=== PATIENT | male | born 1965 | race Caucasian/White ===

== ENCOUNTER 2025-04-15 08:51 | Outpatient (CLI) | payer OTHER, SELFPAY ==
--- OUTSIDE RECORDS SUMMARY | 2025-03-20 08:00 | XMS_ITS | Encounter Summary ---
Author Organization [facility] er Address [address] [place] [address] Care Team Providers Care Director Of Recruitment Name Role Phone Lucho Rock MD Primary Care Provider [phone] Encounter Details Date Type Department Care Team (Late st Contact Info) Description 03/20/2025 8:00 AM CDT Office Visit [facility] [address] [place] [address] Jessie Lal, DPM [address] [place] [address] Type 2 diabetes mellitus with diabetic polyneuropathy, without long-term current use of insulin (HCC) (Primary Dx); History of amputation of right great toe; History of amputation of lesser toe of right foot; Callus of foot; Thickened nails Social History Tobacco Use Types Packs/Day Years Used Date Smoking Tobacco: Never Smokeless Tobacco: Never Alcohol Use Standard Drinks/Week Comments Not Currently 0 (1 standard drink = 0.6 oz pur e alcohol) very minimal B1300 Health Literacy Answer Date Recor ded How often do you need to hav e someone help you when you read instructions, pamphlets, or other written material from your doctor or pharmacy? Never 08/20/2024 [facility] Utilities Answer Date Recorded In the past 12 months has e [employer], gas, oil, or water [employer] threatened to shut off services in your home? No 08/20/2024 Humiliation, Afraid, Rape, and Kick questionnair e Answer Date Recorded Within the last year, have y ou been afraid of your partner or ex-partner? No 08/20/2024 Within the last year, have y ou been humiliated or emotionally abused in other ways by your partner or ex-partner? No Within the last year, have y ou been kicked, hit, slapped, or otherwise physically hurt by your partner or ex-partner? No 08/20/2024 Within the last year, have y ou been raped or forced to have any kind of sexual activity by your partner or ex-partner? No 08/20/2024 Social Connection and Isolation Panel [NHANES] A nswer Date Recorded In a typical week, how many times do you talk on the phone with family, friends, or neighbors? Three times a week 08/20/2024 How often do you get togethe r with friends or relatives? Once a week 08/20/2024 How often do you attend chur ch or adventist services? Never 08/20/2024 Do you belong to any clubs o r organizations such as sikhism groups, unions, fraternal or athletic groups, or school groups? No 08/20/2024 How often do you attend meet ings of the clubs or organizations you belong to? Never 08/20/2024 Are you , , di vorced, , never , or living with a partner? Never 08/20/2024 AUDIT-C Answer Date Recorded Q1: How often do you have a drink containing alcohol? Never 08/20/2024 Q2: How many drinks containi ng alcohol do you have on a typical day when you are drinking? Patient does not drink Q3: How often do you have si x or more drinks on one occasion? Never 08/20/2024 Overall Financial Resource Strain (CARDIA) Answe r Date Recorded How hard is it for you to pa y for the very basics like food, housing, medical care, and heating? Not very hard 08/20/2024 PHQ-2 Answer Date Recorded PHQ-9 Total Score 2 02/02/2025 [facility] [place] of Occupat ional Health - Occupational Stress Questionnaire Answer Date Recorded Do you feel stress - tense, restless, nervous, or anxious, or unable to sleep at night because your mind is troubled all the time - these days? Only a little 08/20/2024 Exercise Vital Sign Answer Date Recorde d On average, how many days pe r week do you engage in moderate to strenuous exercise (like a brisk walk)? 5 days On average, how many minutes do you engage in exercise at this level? Patient declined 08/20/2024 Hunger Vital Sign Answer Date Recorded Within the past 12 months, y ou worried that your food would run out before you got the money to buy more. Never true 08/20/20 24 Within the past 12 months, t he food you bought just didn't last and you didn't have money to get more. Never true 08/20/2024 PRAPARE - Transportation Answer Date Re corded In the past 12 months, has l ack of transportation kept you from medical appointments or from getting medications? No 07/24 In the past 12 months, has l ack of transportation kept you from meetings, work, or from getting things needed for daily living? No 08/20/2024 Housing Stability Vital Sign Answer Donald e Recorded In the last 12 months, was t here a time when you were not able to pay the mortgage or rent on time? No 12/18/2022 In the last 12 months, how many places have you lived? 1 12/18/2022 In the last 12 months, was t here a time when you did not have a steady place to sleep or slept in a long term (including now)? No 12/18/2022 Housing Stability Vital Sign Answer Donald e Recorded In the last 12 months, was t here a time when you were not able to pay the mortgage or rent on time? No 08/20/2024 In the past 12 months, how m any times have you moved where you were living? 0 08/20/2024 At any time in the past 12 m [facility], were you homeless or living in a long term (including now)? No 08/20/2024 Interpersonal Safety Questionnaire Answer Date Recorded How often does anyone, sandoval aponte family and friends, physically hurt you? Never 08/20/2024 How often does anyone, sandoval aponte family and friends, insult or talk down to you? Never 08/20/2024 How often does anyone, sandoval aponte family and friends, threaten you with harm? Never 08/20/2024 How often does anyone, sandoval aponte family and friends, threaten you with harm? 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 male. HPI Patient presents to Podiatry for Diabetic foot care. Patient is unable to cut his nails on his own due to decreased delivery representative strength and flexibility. Patient also needs debridement of the callouses to prevent ulcerations. He has history of amputation of right great toe and 2nd digit, right foot. Patient wearing work boots today Date last seen by Lucho Rock MD: 08/20/2024 Date last seen by Physical Therapist Assistant: Patient last saw Linwood Molina MD on Last hemoglobin A1c: 13.9 on 02/03/2025 Review of Systems Constitutional: No fever, chills or sweats Respiratory: No cough or shortness of breath Cardiac: No chest pain or lower extremity swelling Musc: Amputation right great toe and 2nd digit, right . Skin: Hyperkeratotic tissue present plantar medial aspect of the left hallux and medial aspect of left foot at head of metatarsal. Xerotic skin of the right foot. Heme: denies easy bleeding or bruising. Neuro: History of neuropathy Past Medical History: Diagnosis Date COVID 07/2022 Diabetes (HCC) Type 2 Drug-induced acute pancreatitis 10/09/2012 Drug-induced pancreatitis 06/19/2019 History of amputation of great toe 05/19/2020 History of pancreatitis 08/09/2019 HTN (hypertension) Hyperlipidemia Lyme disease 04/22/2012 Pancreatitis Type 2 diabetes mellitus with ketoacidosis (HCC) 10/08/2012 Varicella Visual impairment Past Surgical History: Procedure Laterality Date ACHILLES TENDON SURGERY Right 07/30/2020 Procedure: ENDOSCOPIC GASTROCNEMIUS RECESSION; Surgeon: Casa Peguero DPM; Location: [facility] OR; Service: Podiatry; Laterality: Right; paper concent (physical copy) AMPUTATION CATARACT EXTRACTION W/ INTRAOCULAR LENS IMPLANT Right 08/31/2021 Procedure: CATARACT EXTRACTION WITH INTRAOCULAR LENS IMPLANTATION; Surgeon: Israel Garcia MD; Location: [facility] OR; Service: Ophthalmology; Laterality: Right; CATARACT EXTRACTION W/ INTRAOCULAR LENS IMPLANT Left 09/14/2021 Procedure: CATARACT EXTRACTION WITH INTRAOCULAR LENS IMPLANTATION; Surgeon: Israel Garcia MD; Location: [facility] OR; Service: Ophthalmology; Laterality: Left; COLONOSCOPY N/A 01/07/2021 Procedure: COLONOSCOPY; Surgeon: Marlon Lord MD; Location: [facility] GI; Service: General; Laterality: N/A; COLONOSCOPY N/A 01/10/2021 Procedure: COLONOSCOPY; Surgeon: Marlon Lord MD; Location: [facility] GI; Service: General; Laterality: N/A; COLONOSCOPY N/A 09/28/2023 Procedure: COLONOSCOPY WITH MAC; Surgeon: Alex Martino MD; Location: [facility] OR PROCEDURE ROOM; Service: General; Laterality: N/A; Lm 07/05 COLONOSCOPY N/A 10/01/2023 Procedure: COLONOSCOPY; Surgeon: Marlon Lord MD; Location: [facility] OR PROCEDURE ROOM; Service: General; Laterality: N/A; repeat scope from sunday COLONOSCOPY N/A 02/12/2025 Procedure: COLONOSCOPY; Surgeon: Marlon Lord MD; Location: [facility] OR PROCEDURE ROOM; Service: General; Laterality: N/A; SCHEDULE WITH DR. LORD SEMI URGENT 02/02/25 left message COLONOSCOPY N/A 02/13/2025 Procedure: COLONOSCOPY; Surgeon: Alex Martino MD; Location: [facility] OR PROCEDURE ROOM; Service: General; Laterality: N/A; Repeat scope from 02/12/25 FOOT SURGERY TOE AMPUTATION Right 2004 partial right great toe amputation TOE AMPUTATION Right 06/11/2020 Procedure: Amputation right great toe; Surgeon: Jesusita Jasso DPM; Location: [facility] OR; Service: Podiatry; Laterality: Right; TOE AMPUTATION Right 07/30/2020 Procedure: AMPUTATION SECOND TOE; Surgeon: Casa Peguero DPM; Location: [facility] OR; Service: Podiatry; Laterality: Right; paper concent (the [place] was not working) paper copy Objective Physical Exam Lower Extremity Vascular Pulses: DP pulses palpable bilateral. PT pulses palpable bilateral. Capillary refill time: within normal limits bilateral to all pedal digits. Pedal hair growth: absent bilateral lower extremities from the knee distally. Edema: mild diffuse nonpitting edema to bilateral lower extremities Skin Temperature: toes cool to touch bilateral lower extremities Lower Extremity Dermatology Skin: skin atrophic thin and shiny bilateral lower extremities Toenails: toenails 1-5 left foot and 3 through 5 right foot appropriate in length and thickness today. Hyperkeratotic lesions medial aspect of left foot at the head of the 1st metatarsal and medial aspect of the left Hallux Light touch sensation: decreased to the plantar aspect of the foot with positive numbness, burning and tingling to the toes Lower Extremity Musculoskeletal Left lower extremity - Inspection: hammertoe deformity 2-5. Right lower extremity - Inspection: great toe and second toe amputation. Hammertoe deformity 3-5. Gait exam: Unimpaired with no assistive device Procedure: Callus Debridement x2: Debridement of thickened callused abnormal nonviable skin to the level of the dermis to the left foot. Pain relief noted with procedure. Patient tolerated procedure well. No open wound or bleeding. No complications associated with callus debridement x2 today. Callus debridement is medically necessary to prevent ulceration and relieve pain. Toenail Debridement: toenails 1-5 bilateral manually and mechanically debrided both in thickness and in length to obtain a more normal appearance of the nails. Pain relief noted with procedure. Patient tolerated procedure well. No complications associated with the procedure today. 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 Patient will return to clinic in 10 weeks for debridement of his calluses. 2. Patient will call with any questions or concerns. 3. Patient to apply lotion to his feet on a daily basis. Jessie Lal DPM, FACFAS documented in this encounter Plan of Treatment Upcoming Encounters Date Type Department Care Team (Late st Contact Info) Description 05/29/2025 8:00 AM CDT Office Visit [facility] [address] [place] [address] Treva Zamora, CONFIGURATION MANAGER, SCHOOL CUSTODIAN [address] [facility] [address] documented as of this encounter Goals Goal Patient Goal Type Associated Problems Recent Progress Patient-Stated? Author Routine Health Management General On track( 022 1:17 PM SEAFOOD CLERK) No Beti Varela, RN Note: Routine Health Management Primary Care Provider Lucho Rock MD Future Scheduled Appointments Future Appointments Date Time Provider Department Center 01/20/2022 4:00 PM Kaila Bateman DPM [facility] Health Maintenance Health Maintenance Topic Date Due COVID-19 Vaccine (1) Never done Hemoglobin A1C 11/23/2021 Lipid Panel 07/01/2022 Urine Protein Screening 07/01/2022 Diabetic Foot Exam 07/22/2022 Ophthalmology Exam 09/22/2022 Colorectal Cancer Screening: Colonoscopy 01/11/2024 [facility] Pneumococcal Vaccine: <64 (2 of 2 - PPSV23) 2029 [facility] Pneumococcal Vaccine: 65+ Years (2 of 2 - PPSV23) 2029 HPV Vaccines Aged Out Notes: Diabetes Management General No change(2021 1:17 PM SEAFOOD CLERK) No Beti Varela, RN Note: Diabetes Management Diabetes mellitus type II, non insulin dependent (HCC) Mixed hyperlipidemia Managed by (PCP or Endocrinology) Dr. Rosado (Endocrinology) Last: 07/22/21 Due: Lifestyle management (diet and exercise) Limits carbs/sugars Avoid snacking Home Glucose tracking With meals and before bedtime Diabetic medications glipiZIDE (GLUCOTROL XL) 10 MG 24 hr tablet 1 tablet twice daily metFORMIN (GLUCOPHAGE) 1000 MG tablet 1 tablet twice daily pioglitazone (ACTOS) 30 MG tablet 1 tablet daily Empagliflozin (Jardiance) 25 MG tablet 1 tablet daily Statin therapy atorvastatin (LIPITOR) 40 MG tablet 1 tablet evening Aspirin therapy (if applicable: diagnosis IVD) aspirin 81 MG chewable tablet 1 tablet daily Diabetic labs: Hemoglobin A1C (goal: less than 8.0) LDL (goal: less than 100) Creatinine Urine-Micro albumin / Protein Lab Results Component Value Date HGBA1C 9.7 (H) 08/23/2021 HGBA1C 9.6 (H) 07/01/2021 HGBA1C 8.5 (H) 09/27/2020 Lab Results Component Value Date LDLCALC 66 07/01/2021 CREATININE 1.2 07/01/2021 Recent Blood Pressure (goal: less than 140/90) BP Readings from Last 1 Encounters: 09/29/21 103/74 Diabetic Eye Exam (yearly) Last: 08/08/2021 Diabetic Foot Exam (yearly) Last: 02/07/21 Tobacco use Social History Tobacco Use Smoking status: Never Smoker Smokeless tobacco: Never Used Notes: Cardiovascular Management General On track( 022 1:17 PM SEAFOOD CLERK) Beti Grimm RN Note: Cardiovascular Management Essential hypertension Managed by (PCP; Cardiology; [facility]) Dr. 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
--- NOTE | 2025-04-15 09:15 | CRLHL7_ITS ---
For Patients: As a result of the Century Cures Act, medical imaging exams and procedure reports are released immediately into your electronic medical record. You may view this report before your referring provider. If you have questions, please contact your health care provider. INDICATION: Difficulty swallowing TECHNIQUE: Modified barium swallow. Fluoroscopic time 50 seconds. COMPARISON: None FINDINGS/IMPRESSION: Anatomical structures are normal. Swallowing mechanism appears within normal limits. No episodes of penetration or aspiration. No significant findings. Dictated by Manny Liriano MD @ 04/15/2025 10:12:21 AM (Electronically Signed)
--- OUTSIDE RECORDS SUMMARY | 2025-04-16 00:29 | XMS_ITS | Encounter Summary ---
Author Organization [facility] er Address [address] [place] [address] Care Team Providers Care Pst Specialist Name Role Phone Lucho Rock MD Primary Care Provider [phone] Encounter Details Date Type Department Care Team (Late Contact Info) Description 08/02/2020 Telephone [facility] Medical/Surgical [address] [place] [address] Howie Pérez, MSN [address] [place] [address] Social History Tobacco Use Types Packs/Day Years Used Date Smoking Tobacco: Never Smokeless Tobacco: Never Alcohol Use Standard Drinks/Week Comments Not Currently 0 (1 standard drink = 0.6 oz pure alcohol) Havent had a drink in ten years PHQ-2 Answer Date Recorded PHQ-2 Score 0 06/09/2020 Sex and Gender Information Value Date Recorded Sex Assigned at Not on file Legal Sex Male 6:43 PM CDT Gender Identity Not on file Sexual Orientation Not on file COVID-19 Exposure Response Date Recorded In the last month, have you been in contact with someone who was confirmed or suspected to have Coronavirus / COVID-19? No / Unsure 07/25/2020 8:28 PM CDT documented as of this encounter Plan of Treatment Upcoming Encounters Date Type Department Care Team (Late st Contact Info) Description 05/29/2025 8:00 AM CDT Office Visit [facility] [address] [address] Treva Zamora, HOSPICE COMMUNITY LIAISON, HARPSICHORD MAKER [address] [place] [address] documented as of this encounter Goals Goal Patient Goal Type Associated Problems Recent Progress Patient-Stated? Author Routine Health Management General On track( 022 1:17 PM VETERINARY DENTIST) No Beti Varela, RN Note: Routine Health Management Primary Care Provider Lucho Rock MD Future Scheduled Appointments Future Appointments Date Time Provider Department Center 01/20/2022 4:00 PM Kaila Bateman DPM [facility] Health Maintenance Health Maintenance Topic Date [...] Diabetes Management General No change(2021 1:17 PM VETERINARY DENTIST) No Beti Varela, RN Note: Diabetes Management [...] Never Smoker Smokeless tobacco: Never Used Notes: documented as of this encounter Visit Diagnoses Not on filedocumented in this encounter Additional Health Concerns Infection Onset Date Last Indicated Resolved Time MSSA 06/13/2019 07/27/2020 07/19/2022 8:27 AM CDT COVID-19 Rule Out 08/26/2021 08/26/2021 08/27/2021 6:33 AM CDT COVID-19 Rule Out 09/01/2021 09/01/2021 09/01/2021 8:13 PM VETERINARY DENTIST COVID-19 Rule Out 09/09/2021 09/09/2021 09/10/2021 1:46 AM VETERINARY DENTIST COVID-19 Rule Out 06/21/2022 06/21/2022 06/21/2022 4:19 PM CDT COVID-19 Rule Out 06/21/2022 06/21/2022 06/21/2022 4:31 PM CDT COVID-19 Rule Out 06/27/2022 06/27/2022 06/27/2022 3:35 PM CDT COVID-19 Rule Out 08/17/2022 08/17/2022 08/17/2022 11:18 AM CDT COVID-19 Confirmed 08/17/2022 08/17/2022 8:17 PM VETERINARY DENTIST COVID-19 Rule Out 07/03/2024 07/03/2024 07/03/2024 1:46 PM CDT COVID-19 Confirmed 07/03/2024 07/03/2024 8:17 PM VETERINARY DENTIST documented as of this encounter Care Teams Pst Specialist Relationship Specialty Start Date End Date Lucho Rock MD [address] [facility] [address] [place] [address] PCP - General Family Medicine 11/18/20 documented as of this encounter
--- OUTSIDE RECORDS SUMMARY | 2025-04-16 00:29 | XMS_ITS | Encounter Summary ---
Author Organization [facility] er Address [address] [place] [address] Care Team Providers Care Business Services Officer Name Role Phone Lucho Rock MD Primary Care Provider [phone] Encounter Details Date Type Department Care Team (Late Contact Info) Description 08/09/2018 Telephone [place] [address] [place] [address] Carla Concepcion, LENS COATER, SYSTEMS SOFTWARE MANAGER [address] [address] Social History Tobacco Use Types Packs/Day Years Used Date Smoking Tobacco: Never Assessed Sex and Gender Information Value Date Recorded Sex Assigned at Not on file Legal Sex Male 6:43 PM CDT Gender Identity Not on file Sexual Orientation Not on file documented as of this encounter Plan of Treatment Upcoming Encounters Date Type Department Care Team (Late Contact Info) Description 05/29/2025 8:00 AM CDT Office Visit [facility] [address], [place] [address] Treva Zamora APRN, SYSTEMS SOFTWARE MANAGER [address] [place] [phone] documented as of this encounter Visit Diagnoses Not on filedocumented in this encounter Additional Health Concerns Infection Onset Date Last Indicated Resolved Time MSSA 06/13/2019 07/27/2020 07/19/2022 8:27 AM CDT COVID-19 Rule Out 06/08/2020 06/08/2020 06/08/2020 10:39 PM CDT COVID-19 Rule Out 08/26/2021 08/26/2021 08/27/2021 6:33 AM CDT COVID-19 Rule Out 09/01/2021 09/01/2021 09/01/2021 8:13 PM TURBINE ATTENDANT COVID-19 Rule Out 09/09/2021 09/09/2021 09/10/2021 1:46 AM TURBINE ATTENDANT COVID-19 Rule Out 06/21/2022 06/21/2022 06/21/2022 4:19 PM CDT COVID-19 Rule Out 06/21/2022 06/21/2022 06/21/2022 4:31 PM CDT COVID-19 Rule Out 06/27/2022 06/27/2022 06/27/2022 3:35 PM CDT COVID-19 Rule Out 08/17/2022 08/17/2022 08/17/2022 11:18 AM CDT COVID-19 Confirmed 08/17/2022 08/17/2022 3 8:17 PM TURBINE ATTENDANT COVID-19 Rule Out 07/03/2024 07/03/2024 07/03/2024 1:46 PM CDT COVID-19 Confirmed 07/03/2024 07/03/2024 4 8:17 PM TURBINE ATTENDANT documented as of this encounter Care Teams Business Services Officer Relationship Specialty Start Date End Date Lucho Rock MD [address] [place] [address] PCP - General Family Medicine 11/18/20 documented as of this encounter
--- OUTSIDE RECORDS SUMMARY | 2025-04-16 00:29 | XMS_ITS | Encounter Summary ---
Author Organization [facility] er Address [address] [place] [address] Care Team Providers Care Service Coordinator Elderly Facility Name Role Phone Lucho Rock MD Primary Care Provider [phone] Encounter Details Date Type Department Care Team (Late st Contact Info) Description 02/04/2025 Results Follow-Up [place] [address] [address] Lucho Rock MD 1705 [facility], [facility] 20 [place] [address] Acute cystitis without hematuria (Primary Dx) Social History Tobacco Use Types Packs/Day Years [...] from your doctor or pharmacy? Never 08/20/2024 [employer] Utilities Answer Date Recorded In the past 12 months has Tam[employer], gas, oil, or water [employer] threatened to shut off services in your [...] 08/20/2024 How often do you attend chur [employer] or lutheran services? Never 08/20/2024 Do you belong to any clubs o r organizations such as sikh groups, unions, fraternal or athletic groups, or [...] Date Recorded PHQ-9 Total Score 2 02/02/2025 [facility] of Occupat ional Health - Occupational Stress [...] place to sleep or slept in a residential (including now)? No 12/18/2022 Housing Stability Vital Sign Answer Donald e Recorded In the last 12 months, was t here a time when you were not able to pay the mortgage or rent on time? No 08/20/2024 In the past 12 months, how m any times have you moved where you were living? 0 08/20/2024 At any time in the past 12 m [facility], were you homeless or living in a residential (including now)? 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 coli. Recommend Bactrim twice a day for 10 days. Prefer the colonoscopy to be scheduled earlier if possible. I have faxed a prescription for the antibiotics to the patient's pharmacy * Result Encounter Note - Lucho Rock MD - 02/04/2025 8:11 AM CDT Continue to try to reach out to Jose to review the medication management prior to colonoscopy (see telephone note from 02/03/25). Also inform him that his A1C was very elevated at 13.9. I would strongly recommend following up with me after colonoscopy or to help further with medications to manage his blood sugars, as we can implement more things prior to his Endocrinology follow up in February. documented in this encounter Plan of Treatment Upcoming Encounters Date Type Department Care Team (Late st Contact Info) Description 05/29/2025 8:00 AM CDT Office Visit [facility] [address] [place] [address] Treva Zamora, DAMAGE ASSESSOR, LEAD SOFTWARE DEVELOPER 210 [facility] [place] [phone] documented as of this encounter Goals Goal Patient Goal Type Associated Problems Recent Progress Patient-Stated? Author Routine Health Management General On track( 022 1:17 PM SOCIAL MEDIA CAMPAIGN MANAGER) Beti Grimm, RN Note: Routine Health Management Primary Care Provider Lucho Rock MD Future Scheduled Appointments Future Appointments Date Time Provider Department Center 01/20/2022 4:00 PM [facility] Health Maintenance Health Maintenance Topic Date Due COVID-19 Vaccine (1) Never done Hemoglobin A1C 11/23/2021 Lipid Panel 07/01/2022 Urine Protein Screening 07/01/2022 Diabetic Foot Exam 07/22/2022 Ophthalmology Exam 09/22/2022 Colorectal Cancer Screening: Colonoscopy 01/11/2024 [facility] Pneumococcal Vaccine: <64 (2 of 2 - PPSV23) 2029 [facility] Pneumococcal Vaccine: 65+ Years (2 of 2 - PPSV23) 2029 HPV Vaccines Aged Out Notes: Diabetes Management General No change(2021 1:17 PM SOCIAL MEDIA CAMPAIGN MANAGER) No Beti Varela RN Note: Diabetes Management Diabetes mellitus type [...] Management General On track( 022 1:17 PM SOCIAL MEDIA CAMPAIGN MANAGER) Beti Grimm, RN Note: Cardiovascular Management Essential hypertension Managed by (PCP; Cardiology; [facility]) Dr. Rock (PCP) Last: 09/29/21 [...] as of this encounter Visit Diagnoses Diagnosis Acute cystitis without hematuria- Primary documented in this encounter Care Teams Service Coordinator Elderly Facility Relationship Specialty Start Date End Date Lucho Rock MD 1705 [facility] 20 [place] [address] PCP - General Family Medicine 11/18/20 documented as of this encounter
--- OUTSIDE RECORDS SUMMARY | 2025-04-16 00:29 | XMS_ITS | Encounter Summary ---
Author Organization [facility] er Address [address] [place] [address] Care Team Providers Care Box Annealer Name Role Phone Lucho Rock MD Primary Care Provider [phone] Encounter Details Date Type Department Care Team (Late st Contact Info) Description 07/15/2020 Telephone [facility] [address] [place] [address] Jesusita Jasso DPArmand 210 [place] [address] Social History Tobacco Use Types Packs/Day Years [...] AM CDT Office Visit [facility] [address] [place] [phone] Treva Zamora APRN, TOWN PLANNER 210 [place] [phone] documented as of this encounter Goals Goal Patient Goal Type Associated Problems Recent Progress Patient-Stated? Author Routine Health Management General On track( 022 1:17 PM CASINO SUPERVISOR) No Beti Varela RN Note: Routine Health Management Primary Care Provider Lucho Rock MD Future Scheduled Appointments Future Appointments Date Time Provider Department Center 01/20/2022 4:00 PM Kaila Bateman DPM [facility] Health Maintenance Health Maintenance Topic Date Due COVID-19 Vaccine (1) Never done Hemoglobin A1C 11/23/2021 Lipid Panel 07/01/2022 Urine Protein Screening 07/01/2022 Diabetic Foot Exam 07/22/2022 Ophthalmology Exam 09/22/2022 Colorectal Cancer Screening: Colonoscopy 01/11/2024 [facility] Pneumococcal Vaccine: <64 (2 of 2 - PPSV23) 2029 [facility] Pneumococcal Vaccine: 65+ Years (2 of 2 - PPSV23) 2029 HPV Vaccines Aged Out Notes: Diabetes Management General No change(2021 1:17 PM CASINO SUPERVISOR) No Beti Varela RN Note: Diabetes Management [...] Rule Out 09/01/2021 09/01/2021 09/01/2021 8:13 PM CASINO SUPERVISOR COVID-19 Rule Out 09/09/2021 09/09/2021 09/10/2021 1:46 AM CASINO SUPERVISOR COVID-19 Rule Out 06/21/2022 06/21/2022 06/21/2022 4:19 PM CDT COVID-19 Rule Out 06/21/2022 06/21/2022 06/21/2022 4:31 PM CDT COVID-19 Rule Out 06/27/2022 06/27/2022 06/27/2022 3:35 PM CDT COVID-19 Rule Out 08/17/2022 08/17/2022 08/17/2022 11:18 AM CDT COVID-19 Confirmed 08/17/2022 08/17/2022 8:17 PM CASINO SUPERVISOR COVID-19 Rule Out 07/03/2024 07/03/2024 07/03/2024 1:46 PM CDT COVID-19 Confirmed 07/03/2024 07/03/2024 8:17 PM CASINO SUPERVISOR documented as of this encounter Care Teams Box Annealer Relationship Specialty Start Date End Date Lucho Rock MD [address] [place] [address] PCP - General Family Medicine 11/18/20 documented as of this encounter
--- OUTSIDE RECORDS SUMMARY | 2025-04-16 00:29 | XMS_ITS | Encounter Summary ---
Author Organization [facility] er Address [address] [place] [address] Care Team Providers Care Desktop Publisher Name Role Phone Lucho Rock MD Primary Care Provider [phone] Reason for Visit * Reason Onset Date Comments Med Refill 07/06/2020 Encounter Details Date Type Department Care Team (Late st Contact Info) Description 07/06/2020 Refill [place] [address] [address] [place] [address] [place] [phone] Diabetes mellitus type II, non insulin dependent (HCC) Social History Tobacco Use Types Packs/Day Years [...] have Coronavirus / COVID-19? No / Unsure 06/11/2020 9:26 AM CDT documented as of this encounter Miscellaneous Notes * Telephone Encounter - Maya Velez MA - 07/06/2020 11:15 AM CDT Last visit in provider department: 07/01/2020 Last visit requested medication was discussed: 07/01/2020 Upcoming appointment with provider: none Last Rx: 06/24/19 #180, 3 refills Requested Prescriptions Pending Prescriptions Disp Refills ??? glipiZIDE (GLUCOTROL XL) 10 MG 24 hr tablet 180 tablet 3 Sig: TAKE ONE TABLET BY MOUTH TWICE A DAY Labs: Component Latest Ref Rng & Units 07/01/2020 Microalbumin,mg/day 0.0 - 16.6 mg/L <6.0 Creatinine, Urine mg/dL 63 Microalb/Creat Ratio 0 - 16 mg/g see below Component Latest Ref Rng & Units 07/01/2020 Hemoglobin A1C 4.0 - 5.6 % A1C 9.0 (H) Component Latest Ref Rng & Units 07/01/2020 Cholesterol 0 - 199 mg/dL 153 Triglycerides 0 - 149 mg/dL 234 (H) HDL 40 - 250 mg/dL 32 (L) LDL Calculated 0 - 99 mg/dL 74 Component Latest Ref Rng & Units 07/01/2020 Sodium 135 - 145 mmol/L 141 Potassium 3.5 - 5.1 mmol/L 4.8 Chloride 98 - 107 mmol/L 103 CO2 22 - 31 mmol/L 27 Creatinine 0.6 - 1.4 mg/dL 1.0 BUN 5 - 25 mg/dL 20 Glucose 70 - 100 mg/dL 148 (H) Calcium, Total,S 8.4 - 10.2 mg/dL 9.9 Fasting? Yes Vitals: BP Readings from Last 2 Encounters: 07/01/20 110/70 06/11/20 131/79 documented in this encounter Plan of Treatment Upcoming Encounters Date Type Department Care Team (Late st Contact Info) Description 05/29/2025 8:00 AM CDT [facility] Visit [facility] [address] [place] [address] Treva Zamora, MONOTYPE CASTER, HUMAN FACTORS ADVISOR LEAD 210 [facility] [place] [address] documented as of this encounter Goals Goal Patient Goal Type Associated Problems Recent Progress Patient-Stated? Author Routine Health Management General On track( 022 1:17 PM ENVIRONMENTAL GEOLOGIST) No Beti Varela RN Note: Routine Health Management Primary Care Provider Lucho Rock MD Future Scheduled Appointments Future Appointments Date Time Provider Department Center 01/20/2022 4:00 PM Kaila Bateman DPM [facility] Health Maintenance Health Maintenance Topic Date [...] Diabetes Management General No change(2021 1:17 PM ENVIRONMENTAL GEOLOGIST) No Beti Varela RN Note: Diabetes Management [...] as of this encounter Visit Diagnoses Diagnosis Diabetes mellitus type II, non insulin dependent (HCC) Type II or unspecified type diabetes mellitus without mention of complication, not stated as uncontrolled documented in this encounter Additional Health Concerns Infection Onset Date Last Indicated Resolved Time MSSA 06/13/2019 07/27/2020 07/19/2022 8:27 AM CDT COVID-19 Rule Out 08/26/2021 08/26/2021 08/27/2021 6:33 AM CDT COVID-19 Rule Out 09/01/2021 09/01/2021 09/01/2021 8:13 PM ENVIRONMENTAL GEOLOGIST COVID-19 Rule Out 09/09/2021 09/09/2021 09/10/2021 1:46 AM ENVIRONMENTAL GEOLOGIST COVID-19 Rule Out 06/21/2022 06/21/2022 06/21/2022 4:19 PM CDT COVID-19 Rule Out 06/21/2022 06/21/2022 06/21/2022 4:31 PM CDT COVID-19 Rule Out 06/27/2022 06/27/2022 06/27/2022 3:35 PM CDT COVID-19 Rule Out 08/17/2022 08/17/2022 08/17/2022 11:18 AM CDT COVID-19 Confirmed 08/17/2022 08/17/2022 3 8:17 PM ENVIRONMENTAL GEOLOGIST COVID-19 Rule Out 07/03/2024 07/03/2024 07/03/2024 1:46 PM CDT COVID-19 Confirmed 07/03/2024 07/03/2024 4 8:17 PM ENVIRONMENTAL GEOLOGIST documented as of this encounter Care Teams Desktop Publisher Relationship Specialty Start Date End Date Lucho Rock MD 1705 [facility] 20 [place] [address] PCP - General Family Medicine 11/18/20 documented as of this encounter
--- OUTSIDE RECORDS SUMMARY | 2025-04-16 00:29 | XMS_ITS | Encounter Summary ---
Author Organization [facility] er Address [address] [place] [address] Care Team Providers Care Paper Roll Machine Operator Name Role Phone Lucho Rock MD Primary Care Provider [phone] Reason for Visit * Reason Comments Med Refill Encounter Details Date Type Department Care Team (Late st Contact Info) Description 12/26/2022 Refill [facility] [address] [place] [address] Harris Rosado MBBS [address] [place] [id number] Type 2 diabetes mellitus with hyperglycemia, without long-term current use of insulin (HCC) Social History Tobacco Use Types Packs/Day Years Used Date Smoking Tobacco: Never Smokeless Tobacco: Never Alcohol Use Standard Drinks/Week Comments Not Currently 0 (1 standard drink = 0.6 oz pure alcohol) Havent had a drink in 12 years Humiliation, Afraid, Rape, and Kick questionnair e Answer Date Recorded Within the last year, have y ou been afraid of your partner or ex-partner? No 12/18/2022 Within the last year, have y ou been humiliated or emotionally abused in other ways by your partner or ex-partner? No Within the last year, have y ou been kicked, hit, slapped, or otherwise physically hurt by your partner or ex-partner? No 12/18/2022 Within the last year, have y ou been raped or forced to have any kind of sexual activity by your partner or ex-partner? No 12/18/2022 Social Connection and Isolat ion Panel [NHANES] Answer Date Recorded In a typical week, how many times do you talk on the phone with family, friends, or neighbors? More than three times a week 12/18/2022 How often do you get togethe r with friends or relatives? Once a week 12/18/2022 How often do you attend chur ch or christianity services? Never 12/18/2022 Do you belong to any clubs o r organizations such as mormonism groups, unions, fraternal or athletic groups, or school groups? No 12/18/2022 How often do you attend meet ings of the clubs or organizations you belong to? Never 12/18/2022 Are you , , di vorced, , never , or living with a partner? Never 12/18/2022 AUDIT-C Answer Date Recorded Q1: How often do you have a drink containing alcohol? Never 12/18/2022 Q2: How many drinks containi ng alcohol do you have on a typical day when you are drinking? Patient does not drink Q3: How often do you have si x or more drinks on one occasion? Never 12/18/2022 Overall Financial Resource Strain (CARDIA) Answe r Date Recorded How hard is it for you to pa y for the very basics like food, housing, medical care, and heating? Not hard at all 12/18/2022 PHQ-2 Answer Date Recorded PHQ-9 Total Score 2 12/27/2022 [facility] of Occupat ional Health - Occupational Stress Questionnaire Answer Date Recorded Do you feel stress - tense, restless, nervous, or anxious, or unable to sleep at night because your mind is troubled all the time - these days? Only a little 12/18/2022 Exercise Vital Sign Answer Date Recorde d On average, how many days pe r week do you engage in moderate to strenuous exercise (like a brisk walk)? 0 days 12/18/2022 On average, how many minutes do you engage in exercise at this level? 0 min 12/18/2022 Hunger Vital Sign Answer Date Recorded Within the past 12 months, y ou worried that your food would run out before you got the money to buy more. Never true 12/18/19 23 Within the past 12 months, t he food you bought just didn't last and you didn't have money to get more. Never true 12/18/2022 PRAPARE - Transportation Answer Date Re corded In the past 12 months, has l ack of transportation kept you from medical appointments or from getting medications? No 11/23 In the past 12 months, has l ack of transportation kept you from meetings, work, or from getting things needed for daily living? No 12/18/2022 Housing Stability Vital Sign Answer [...] place to sleep or slept in a group home (including now)? 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 Not on file Not on file documented as of this encounter Miscellaneous Notes * Telephone Encounter - Maddie Contreras LPN - 12/26/2022 9:27 AM STRIP DEBURRER Upcoming appointment with provider: 02/08/2023 Last visit in provider department: 03/31/2022 Last visit requested medication was discussed: 03/31/2022 Last Rx: Glipizide #180, 0 refills 09/28/2022 Pioglitazone #90, 0 refills 09/28/2022 Requested Prescriptions Pending Prescriptions Disp Refills glipiZIDE (GLUCOTROL XL) 10 MG 24 hr tablet [Pharmacy Med Name: GLIPIZIDE ER 10MG TB24] 180 tablet 0 Sig: TAKE 1 TABLET BY MOUTH TWICE A DAY pioglitazone (ACTOS) 30 MG tablet [Pharmacy Med Name: PIOGLITAZONE HCL 30MG TABS] 90 tablet 0 Sig: TAKE 1 TABLET BY MOUTH EVERY DAY Labs: ALBUMIN Date Value Ref Range Status 08/17/2022 4.3 3.5 - 5.0 g/dL Final CREATININE Date Value Ref Range Status 08/17/2022 1.3 0.6 - 1.4 mg/dL Final CHOL Date Value Ref Range Status 08/17/2022 134 0 - 199 mg/dL Final Comment: Recommended by National Cholesterol Education Program (ATP III) -------- Cholesterol Ranges -------- <200 Desirable 200-239 Borderline high >=240 High LDLCALC Date Value Ref Range Status 08/17/2022 69 0 - 99 mg/dL Final Comment: -------- LDL Ranges -------- <100 Optimal 100-129 Near optimal/above optimal 130-159 Borderline high 160-189 High >=190 Very high HDL Date Value Ref Range Status 08/17/2022 39 (L) 40 - 250 mg/dL Final Comment: -------- HDL Ranges -------- <40 Low 40-59 Normal >=60 Optimal TRIG Date Value Ref Range Status 08/17/2022 130 0 - 149 mg/dL Final Comment: -------- TRIG Ranges -------- <150 Normal 150-199 Borderline high 200-499 High >=500 Very high HGBA1C Date Value Ref Range Status 08/17/2022 10.0 (H) 4.0 - 5.6 % A1C Final Comment: Reference Range 4.0-5.6% is for non- adults >=18 yrs <5.6% Non-Diabetic 5.7-6.4% Increased risk of Diabetes >=6.5% Indicative of Diabetes <7.0% ADA goal for glycemic control Methodology may not detect all hemoglobin variants which can affect A1c results. Method certified by National Glycohemoglobin Standardization Program. Vitals: BP Readings from Last 2 Encounters: 12/18/22 119/71 10/20/22 138/82 P DEBURRER documented in this encounter Plan of Treatment Upcoming Encounters Date Type Department Care Team (Late st Contact Info) Description 05/29/2025 8:00 AM CDT Office Visit [facility] [address] [place] [address] Treva Zamora, GUNCOTTON PACKER, TOY MAKER [address] [place] [address] documented as of this encounter Goals Goal Patient Goal Type Associated Problems Recent Progress Patient-Stated? Author Routine Health Management General On track( 022 1:17 PM STRIP DEBURRER) No Beti Varela, RN Note: Routine Health Management Primary Care Provider Lucho Rock MD Future Scheduled Appointments Future Appointments Date Time Provider Department Center 01/20/2022 4:00 PM Kaila Bateman DPM [facility] Health Maintenance Health Maintenance Topic Date [...] Diabetes Management General No change(2021 1:17 PM STRIP DEBURRER) No Beti Varela, RN Note: Diabetes Management [...] Management General On track( 022 1:17 PM STRIP DEBURRER) Beti Grimm, RN Note: Cardiovascular Management Essential hypertension Managed by (PCP; Cardiology; [facility]) Dr. Rock (PCP) Last: 09/29/21 [...] Diagnoses Diagnosis Type 2 diabetes mellitus with hyperglycemia, without long-term current use of insulin (HCC) documented in this encounter Additional Health Concerns Infection Onset Date Last Indicated Resolved Time COVID-19 Rule Out 07/03/2024 07/03/2024 07/03/2024 1:46 PM CDT COVID-19 Confirmed 07/03/2024 07/03/2024 8:17 PM STRIP DEBURRER documented as of this encounter Care Teams Paper Roll Machine Operator Relationship Specialty Start Date End Date Lucho Rock MD 1705 [facility] 20 [place] [address] PCP - General Family Medicine 11/18/20 documented as of this encounter
--- OUTSIDE RECORDS SUMMARY | 2025-04-16 00:29 | XMS_ITS | Encounter Summary ---
Author Organization [facility] er Address [address] [place] [address] Care Team Providers Care Cylinder Checker Name Role Phone Lucho Rock MD Primary Care Provider [phone] Encounter Details Date Type Department Care Team (Late st Contact Info) Description 01/30/2025 Results Follow-Up [facility] General Surgery [address] [place] [address] [place] [address] [place] [phone] Pneumaturia (Primary Dx) Social History Tobacco Use Types Packs/Day Years Used Date Smoking Tobacco: Never Smokeless Tobacco: Never Alcohol Use Standard Drinks/Week Comments Yes 0 (1 standard drink = 0.6 oz pur e alcohol) very minimal B1300 Health Literacy Answer Date Recor ded How often do you need to hav e someone help you when you read instructions, pamphlets, or other written material from your doctor or pharmacy? Never 08/20/2024 [facility] Utilities Answer Date Recorded In the past 12 months has [facility] [employer], gas, oil, or water [employer] threatened to shut off services in your [...] 08/20/2024 How often do you attend chur [email or web address] or episcopalian services? Never 08/20/2024 Do you belong to any clubs o r organizations such as spiritism groups, unions, fraternal or athletic groups, or [...] Date Recorded PHQ-9 Total Score 2 02/02/2025 [facility] - Occupational Stress [...] place to sleep or slept in a prison (including now)? No 12/18/2022 Housing Stability Vital Sign Answer Donald e Recorded In the last 12 months, was t here a time when you were not able to pay the mortgage or rent on time? No 08/20/2024 In the past 12 months, how m any times have you moved where you were living? 0 08/20/2024 At any time in the past 12 m [facility], were you homeless or living in a prison (including now)? 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 Rock. * Telephone Encounter - Stefania Roman - 02/02/2025 10:23 AM CDT LMTCB to come earlier for his pre-op appt 4.14.[address] Rock added on lab if possible. * Telephone Encounter - Lucho Rock MD - 02/02/2025 8:13 AM CDT ----- Message from Marlon Lord MD sent at 01/30/2025 3:50 PM CDT ----- Will this urine specimen be sent directly culture or do we need to order it separately ----- Message ----- From: Interface, Lab Results In Sent: 01/30/2025 11:10 AM CDT To: Marlon Lord MD * Result Encounter Note - Marlon Lord MD - 01/30/2025 3:50 PM CDT Will this urine specimen be sent directly culture or do we need to order it separately documented in this encounter Plan of Treatment Upcoming Encounters Date Type Department Care Team (Late st Contact Info) Description 05/29/2025 8:00 AM CDT Office Visit [facility] [address] [place] [address] Treva Quigley, RESIDENTIAL PROGRAM MANAGER, PHLEBOTOMY COORDINATOR [address] [place] [address] documented as of this encounter Goals Goal Patient Goal Type Associated Problems Recent Progress Patient-Stated? Author Routine Health Management General On track( 022 1:17 PM BOG WORKER) No Beti Varela, RN Note: Routine Health Management Primary Care Provider Lucho Rock MD Future Scheduled Appointments Future Appointments Date Time Provider Department Center 01/20/2022 4:00 PM Kaila Bateman DPM [facility] Health Maintenance Health Maintenance Topic Date Due COVID-19 Vaccine (1) Never done Hemoglobin A1C 11/23/2021 Lipid Panel 07/01/2022 Urine Protein Screening 07/01/2022 Diabetic Foot Exam 07/22/2022 Ophthalmology Exam 09/22/2022 Colorectal Cancer Screening: Colonoscopy 01/11/2024 [facility] Pneumococcal Vaccine: <64 (2 of 2 - PPSV23) 2029 [facility] Pneumococcal Vaccine: 65+ Years (2 of 2 - PPSV23) 2029 HPV Vaccines Aged Out Notes: Diabetes Management General No change(2021 1:17 PM BOG WORKER) No Beti Varela, RN Note: Diabetes Management [...] Management General On track( 022 1:17 PM BOG WORKER) Beti Grimm RN Note: Cardiovascular Management Essential hypertension Managed by (PCP; Cardiology; [facility]) Dr. Rock (PCP) Last: 09/29/21 Due: [...] exercise) Notes: documented as of this encounter Procedures Procedure Name Priority Date/Time Associated Diagnosis Comments ADD-ON TEST REQUEST Routine 02/02/2025 8 :14 AM CDT Pneumaturia documented in this encounter Results * Add-On Test Request (02/02/2025 8:14 AM CDT) Add-on Testing SEE BELOW 02/02/2025 9:15 AM CDT [facility] Comment: Unable to add on URINE. 02/02/2025 8:14 AM CDT 02/02/2025 8:14 AM CDT Lucho Rock MD LAB BLOOD ORDERABLES Final R esult [facility] [address] [place] [address] documented in this encounter Visit Diagnoses Diagnosis Pneumaturia- Primary Other specified disorders of urinary tract documented in this encounter Care Teams Cylinder Checker Relationship Specialty Start Date End Date Lucho Rock MD [address] [place] [address] PCP - General Family Medicine 11/18/20 documented as of this encounter
--- OUTSIDE RECORDS SUMMARY | 2025-04-16 00:29 | XMS_ITS | Encounter Summary ---
Author Organization [facility] er Address [address] [place] [address] Care Team Providers Care On Call Pharmacy Technician Name Role Phone Lucho Rock MD Primary Care Provider [phone] Reason for Visit * Reason Comments Med Refill Encounter Details Date Type Department Care Team (Late st Contact Info) Description 09/30/2021 Refill [facility] [address] [place] [address] [phone] Harris Rosado MBBS [address] [place] [id number] Mixed hyperlipidemia Social History Tobacco Use Types Packs/Day Years Used Date Smoking Tobacco: Never Smokeless Tobacco: Never Alcohol Use Standard Drinks/Week Comments Not Currently 0 (1 standard drink = 0.6 oz pure alcohol) Havent had a drink in 12 years PHQ-2 Answer Date Recorded PHQ-9 Total Score 0 09/29/2021 Sex and Gender Information Value Date Recorded Sex Assigned at Not on file Legal Sex Male 6:43 PM CDT Gender Identity Not on file Sexual Orientation Not on file COVID-19 Exposure Response Date Recorded In the last month, have you been in contact with someone who was confirmed or suspected to have Coronavirus / COVID-19? No / Unsure 09/14/2021 10:08 AM SEWER AND CUTTER FINGER BUFF MATERIAL documented as of this encounter Miscellaneous Notes * Telephone Encounter - Shahrzad Mendez - 10/05/2021 11:22 AM CST scheduled R AND CUTTER FINGER BUFF MATERIAL * Telephone Encounter - Shahrzad Mendez - 2021 8:14 AM CST LMTCB R AND CUTTER FINGER BUFF MATERIAL * Telephone Encounter - Amanda Loya MA - 10/03/2021 12:03 PM SEWER AND CUTTER FINGER BUFF MATERIAL Patient is due for a f/u appt around 10/22/21. Please contact patient and schedule diabetic f/u appt with Dr. Rosado. Patient already did his HbA1c in August. R AND CUTTER FINGER BUFF MATERIAL * Telephone Encounter - Maddie Contreras LPN - 10/03/2021 11:46 AM SEWER AND CUTTER FINGER BUFF MATERIAL Last visit in provider department: 07/22/2021 Last visit requested medication was discussed: 07/22/2021 Upcoming appointment with provider: Visit date not found Last Rx: #90, 0 refills 05/24/2021 Requested Prescriptions Pending Prescriptions Disp Refills ??? fenofibrate (TRICOR) 145 MG tablet [Pharmacy Med Name: FENOFIBRATE 145MG TABS] 90 tablet 0 Sig: TAKE ONE TABLET BY MOUTH EVERY DAY Labs: Ref. Range 07/01/2021 08:19 Cholesterol Latest Ref Range: 0 - 199 mg/dL 140 Triglycerides Latest Ref Range: 0 - 149 mg/dL 220 (H) HDL Latest Ref Range: 40 - 250 mg/dL 30 (L) LDL Calculated Latest Ref Range: 0 - 99 mg/dL 66 Vitals: BP Readings from Last 2 Encounters: 09/29/21 103/74 09/14/21 121/81 Patient is due for three month follow up appointment around 10/22/2021. PSR/Nurse: Please contact patient to assist with scheduling. R AND CUTTER FINGER BUFF MATERIAL documented in this encounter Plan of Treatment Upcoming Encounters Date Type Department Care Team (Late st Contact Info) Description 05/29/2025 8:00 AM CDT Office Visit [facility] [address] [place] [address] Treva Quigley, GALVANIZER, CLIENT DEVELOPMENT CONSULTANT [address] [place] [address] documented as of this encounter Goals Goal Patient Goal Type Associated Problems Recent Progress Patient-Stated? Author Routine Health Management General On track( 022 1:17 PM SEWER AND CUTTER FINGER BUFF MATERIAL) No Beti Varela, RN Note: Routine Health Management Primary Care Provider Lucho Rock MD Future Scheduled Appointments Future Appointments Date Time Provider Department Center 01/20/2022 4:00 PM Kaila Bateman DPM [facility] Health Maintenance Health Maintenance Topic Date Due COVID-19 Vaccine (1) Never done Hemoglobin A1C 11/23/2021 Lipid Panel 07/01/2022 Urine Protein Screening 07/01/2022 Diabetic Foot Exam 07/22/2022 Ophthalmology Exam 09/22/2022 Colorectal Cancer Screening: Colonoscopy 01/11/2024 [facility] Pneumococcal Vaccine: <64 (2 of 2 - PPSV23) 2029 [facility] Pneumococcal Vaccine: 65+ Years (2 of 2 - PPSV23) 2029 HPV Vaccines Aged Out Notes: Diabetes Management General No change(2021 1:17 PM SEWER AND CUTTER FINGER BUFF MATERIAL) No Beti Varela, RN Note: Diabetes Management [...] Management General On track( 022 1:17 PM SEWER AND CUTTER FINGER BUFF MATERIAL) Beti Grimm RN Note: Cardiovascular Management Essential [...] as of this encounter Visit Diagnoses Diagnosis Mixed hyperlipidemia documented in this encounter Additional Health Concerns Infection Onset Date Last Indicated Resolved Time MSSA 06/13/2019 07/27/2020 07/19/2022 8:27 AM CDT COVID-19 Rule Out 06/21/2022 06/21/2022 06/21/2022 4:19 PM CDT COVID-19 Rule Out 06/21/2022 06/21/2022 06/21/2022 4:31 PM CDT COVID-19 Rule Out 06/27/2022 06/27/2022 06/27/2022 3:35 PM CDT COVID-19 Rule Out 08/17/2022 08/17/2022 08/17/2022 11:18 AM CDT COVID-19 Confirmed 08/17/2022 08/17/2022 3 8:17 PM SEWER AND CUTTER FINGER BUFF MATERIAL COVID-19 Rule Out 07/03/2024 07/03/2024 07/03/2024 1:46 PM CDT COVID-19 Confirmed 07/03/2024 07/03/2024 4 8:17 PM SEWER AND CUTTER FINGER BUFF MATERIAL documented as of this encounter Care Teams On Call Pharmacy Technician Relationship Specialty Start Date End Date Lucho Rock MD [address] [place] [address] PCP - General Family Medicine 11/18/20 documented as of this encounter
--- OUTSIDE RECORDS SUMMARY | 2025-04-16 00:29 | XMS_ITS | Encounter Summary ---
Author Organization [facility] er Address [address] [place] [address] Care Team Providers Care Director Outpatient Services Name Role Phone Lucho Rock MD Primary Care Provider [phone] Reason for Visit * Reason Comments Med Refill Encounter Details Date Type Department Care Team (Late st Contact Info) Description 12/26/2022 Refill [facility] [address] [place] [address] Harris Rosado MBBS [address] [place] [address] [phone] Hypertension, unspecified type; Type 2 diabetes mellitus with hyperglycemia, without [...] often do you attend chur ch or mandaen services? Never 12/18/2022 Do you belong to any clubs o r organizations such as sabianism groups, unions, fraternal or athletic groups, or [...] Date Recorded PHQ-9 Total Score 2 12/27/2022 [facility] Answer Date Recorded [...] place to sleep or slept in a fci (including now)? 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 Not on file Not on file Not on file documented as of this encounter Miscellaneous Notes * Telephone Encounter - Maddie Contreras LPN - 12/26/2022 9:21 AM PODOPEDIATRICIAN Upcoming appointment with provider: 02/08/2023 Last visit in provider department: 03/31/2022 Last visit requested medication was discussed: 03/31/2022 Last Rx: #60, 0 refills 10/26/2022 Requested Prescriptions Pending Prescriptions Disp Refills lisinopril (ZESTRIL) 10 MG tablet [Pharmacy Med Name: LISINOPRIL 10MG TABS] 60 tablet 0 Sig: TAKE ONE TABLET BY MOUTH EVERY MORNING Labs: Lab Results Component Value Date CREATININE 1.3 08/17/2022 BUN 23 08/17/2022 NA 135 08/17/2022 K 4.6 08/17/2022 CL 99 08/17/2022 CO2 30 08/17/2022 Vitals: BP Readings from Last 2 Encounters: 12/18/22 119/71 10/20/22 138/82 PEDIATRICIAN documented in this encounter Plan of Treatment Upcoming Encounters Date Type Department Care Team (Late st Contact Info) Description 05/29/2025 8:00 AM CDT Office Visit [facility] [address] [place] [address] Treva Zamora, TEXTILE CHEMIST, CHIEF KNOWLEDGE OFFICER [address] [facility] [place] [address] documented as of this encounter Goals Goal Patient Goal Type Associated Problems Recent Progress Patient-Stated? Author Routine Health Management General On track( 022 1:17 PM PODOPEDIATRICIAN) No Beti Varela, RN Note: Routine Health Management Primary Care Provider Lucho Rock MD Future Scheduled Appointments Future Appointments Date Time Provider Department Center 01/20/2022 4:00 PM Kaila Bateman DPM [facility] Health Maintenance Health Maintenance Topic Date [...] Diabetes Management General No change(2021 1:17 PM PODOPEDIATRICIAN) No Beti Varela, RN Note: Diabetes Management [...] Management General On track( 022 1:17 PM PODOPEDIATRICIAN) Beti Grimm RN Note: Cardiovascular Management Essential hypertension Managed by (PCP; Cardiology; [facility]) Dr. Rock (PCP) Last: 09/29/21 [...] as of this encounter Visit Diagnoses Diagnosis Hypertension, unspecified type Type 2 diabetes mellitus with hyperglycemia, without long-term current use of insulin (HCC) documented in this encounter Additional Health Concerns Infection Onset Date Last Indicated Resolved Time COVID-19 Rule Out 07/03/2024 07/03/2024 07/03/2024 1:46 PM CDT COVID-19 Confirmed 07/03/2024 07/03/2024 12/11/202 4 8:17 PM PODOPEDIATRICIAN documented as of this encounter Care Teams Director Outpatient Services Relationship Specialty Start Date End Date Lucho Rock MD [address] [place] [address] PCP - General Family Medicine 11/18/20 documented as of this encounter
--- OUTSIDE RECORDS SUMMARY | 2025-04-16 00:29 | XMS_ITS | Clinical Summary ---
Author Organization [facility] Address [address] [place] [address] Care Team Providers Care Electrical Tech/Project Manager Name Role Phone Clinic, No Pcp Or Primary Care Provider Unavaila Linwood Castrejon MD Unavailable Allergies No known active allergies Medications aspirin enteric coated 81 mg tablet Take 1 tablet by mouth once daily with a meal. 0 11/05/19 13 Active tamsulosin 0.4 mg capsule Take 0.4 mg by mouth once daily after a meal. 10/03/20 24 025 Active fenofibrate nanocrystallized (TRICOR) 145 mg tablet Take 1 Tablet by mouth once daily. 11/12/19 24 Active lisinopriL (PRINIVIL; ZESTRIL) 10 mg tablet Take 10 mg by mouth once daily. 09/20/20 23 Active Jardiance 25 mg tabletIndications:T ype 2 diabetes mellitus without complication, without long-term current use of insulin (HC) Take 1 Tablet (25 mg) by mouth once daily. 90 Tablet 5 12/16/19 25 Active pioglitazone (ACTOS) 45 mg tabletIndications:T ype 2 diabetes mellitus without complication, without long-term current use of insulin (HC) Take 1 Tablet (45 mg) by mouth once daily. 90 Tablet 5 12/16/19 25 Active blood-glucose meter (Blood Glucose Monitoring)Indicati ons:Type 2 diabetes mellitus without complication, unspecified whether laborer marine terminal insulin use (HC) Dispense meter covered by pts insurance. 1 Each 1 12/16/19 25 Active lancetsIndications: Type 2 diabetes mellitus without complication, unspecified whether snf insulin use (HC) Dispense item covered by pt ins. E11.9 IDDM type II - Test 2 times/day. Supply lancing device with lancets 100 Each 12/16/19 25 Active blood sugar diagnostic (Blood Glucose Test) stripIndications:Ty pe 2 diabetes mellitus without complication, unspecified whether laborer marine terminal insulin use (HC) Dispense item covered by pt ins. E11.9 IDDM type II - Test 2 times/day. 200 Each 03/13/20 25 Active insulin glargine (U-100) (Lantus U-100 Insulin) 100 unit/mL injectionIndication s:Type 2 diabetes mellitus without complication, with long-term current use of insulin (HC) Inject 30 units subcutaneous before bedtime. Product desired: LANTUS 15 mL 2 03/13/20 25 Active insulin aspart (U-100) (NovoLOG Flexpen U-100 Insulin) 100 unit/mL (3 mL) penIndications:Type 2 diabetes mellitus without complication, with long-term current use of insulin (HC) Inject 10 units subcutaneous before dinner. plus sliding scale 2 units for 50 above 150 TDD 50units 15 mL 03/13/20 25 Active glipiZIDE extended-release 10 mg Extended-Release tabletIndications:T ype 2 diabetes mellitus without complication, without long-term current use of insulin (HC) Take 1 Tablet (10 mg) by mouth once daily before a meal. 120 Tablet 03/13/20 25 Active insulin lispro (U-100) (HumaLOG KwikPen Insulin) 100 unit/mLIndications: Type 2 diabetes mellitus without complication, with long-term current use of insulin (HC) Inject 10 units subcutaneous before dinner. 15 mL 3 03/17/20 25 Active insulin glargine-aglr 100 unit/mL (3 mL) inpnIndications:Typ e 2 diabetes mellitus without complication, with long-term current use of insulin (HC) Inject 30 units subcutaneous at bedtime. 15 mL 3 03/17/20 25 Active atorvastatin 40 mg tabletIndications:H yperlipidemia, unspecified hyperlipidemia type Take 1 Tablet (40 mg) by mouth at bedtime. 90 Tablet 03/28/20 25 Active atorvastatin (LIPITOR) 40 mg tablet Take 40 mg by mouth at bedtime. 09/20/20 23 025 Disconti nued(Reo rder (E-cance l not sent)) Active Problems No known active problems Encounters Date Type Department Care Team Description 03/27/2025 Refill [facility] [address] [address] Linwood Molina MD Refill Request 03/26/2025 Telephone [facility] [address] [address] Linwood Molina MD Medication Management (SCALE FOR INSULIN ) 03/24/2025 Telephone [facility] [address] [address] Linwood Molina MD Medication Management (Insulin ) 03/17/2025 Orders Only [facility] [address] [address] Linwood Molina MD <No scans attached> 03/13/2025 3:05 PM CDT Office Visit [facility] [address] [address] Linwood Molina MD Diabetes (3 months ) 03/13/2025 Telephone [facility] [address] [address] Linwood Molina MD Medication Management 03/13/2025 Travel 03/13/2025 Refill [facility] [address] [address] Linwood Molina MD Refill Request from Last 3 Months Social History Tobacco Use Types Packs/Day Years Used Date Smoking Tobacco: Never Smokeless Tobacco: Never Alcohol Use Standard Drinks/Week Comments Not Currently 0 (1 standard drink = 0.6 oz pur e alcohol) couple a year Sex and Gender Information Value Date Recorded Sex Assigned at Not on file Legal Sex Male 8:45 AM CONSULAR OFFICER Gender Identity Not on file Sexual Orientation Not on file Obstetrics History Last Filed Vital Signs Vital Sign Reading Time Taken Comments Blood Pressure 106/70 03/13/2025 3:02 PM CDT Pulse 73 03/13/2025 3:02 PM CDT Temperature 36.6 C (97.8 F) 03/29/2023 10:06 AM CDT Respiratory Rate 16 03/29/2023 10:06 AM CDT Oxygen Saturation 97% 03/13/2025 3:02 PM CDT Inhaled Oxygen Concentration - - Weight 81.2 kg (179 lb) 03/13/2025 3:02 PM CDT Height 170.2 cm (5' 7) 03/29/2023 10:06 AM CDT Body Mass Index 28.04 03/29/2023 10:06 AM CDT Plan of Treatment Upcoming Encounters Date Type Department Care Team (Late st Contact Info) Description 05/15/2025 3:05 PM CDT [facility] [address] [address] [place] [address] [place] [address] Health Maintenance Due Date Last Done Comments Tdap 1975 Depression screening for age 12+ 1976 HIV for age 15-65 1979 BMI (ht and wt on same day) for age 18+ 1982 Hepatitis C screening for ag e 18-79 1982 Pneumococcal series for age 50+ (1 of 2 - PCV) 1983 Tetanus booster 1984 Colonoscopy through age 75 2009 Lipids for age 45-75 2009 Zoster (shingles) series for age 50+ (1 of 2) 2014 COVID-19 vaccine series ( season) 2024 RSV vaccine for adults or (1 - Risk 60-74 years 1-dose series) 2024 Influenza Vaccine (Season Ended) 2025 Hepatitis B series for 19+ Aged Out N o longer eligible based on patient's age to complete this topic Procedures Procedure Name Priority Date/Time Associated Diagnosis Comments HEMOGLOBIN A1C MONITORING (POCT) Routine 02/03/2025 3:25 PM CDT Type 2 diabetes mellitus without complication, with long-term current use of insulin (HC) from Last 3 Months Results * (ABNORMAL) HEMOGLOBIN A1C MONITORING (POCT) (02/03/2025 3:25 PM CDT) HEMOGLOBIN A1C MONITORING (POCT) 13.9(EXTER NAL) <=6.4 % OTHER-NOT LISTED-ADD NARRATIVE DETAILS Blood BLOOD SPECIMEN / Unknown 02/03/2025 3:25 PM CDT Narrative OTHER-NOT LISTED-ADD NARRATIVE DETAILS - 02/03/2025 5:54 PM CDT Name: [facility] Address: [address] [place] [address] Linwood Molina MD CHEMISTRY Final Result OTHER-NOT LISTED-ADD NARRATIVE DETAILS from Last 3 Months Insurance [facility] [employer] [facility] WC WORKERS COMP on file Care Teams Electrical Tech/Project Manager Relationship Specialty Start Date End Date Clinic, No Pcp Or . PCP - General 03/29/23 [place] [address] [place] [address] Endocrinology 12/16/24
--- OUTSIDE RECORDS SUMMARY | 2025-04-16 00:29 | XMS_ITS | Encounter Summary ---
Author Organization [facility] er Address [address] [place] [address] Care Team Providers Care Database Programmer Analyst Name Role Phone Lucho Rock MD Primary Care Provider [phone] Reason for Visit * Reason Onset Date Comments Med Refill 12/09/2018 Encounter Details Date Type Department Care Team (Late st Contact Info) Description 12/09/2018 Refill [place] [address] [place] [address] Carla Concepcion, SAS PROGRAMMER ANALYST, FISH DRESSING MACHINE FEEDER [address] [address] Erectile dysfunction, unspecified erectile dysfunction type Social History Tobacco Use Types Packs/Day Years Used Date Smoking Tobacco: Never Smokeless Tobacco: Never Alcohol Use Standard Drinks/Week Comments Yes 0 (1 standard drink = 0.6 oz pur e alcohol) Sex and Gender Information Value Date Recorded Sex Assigned at Not on file Legal Sex Male 6:43 PM CDT Gender Identity Not on file Sexual Orientation Not on file documented as of this encounter Miscellaneous Notes * Telephone Encounter - Sagrario Rios MA - 12/09/2018 1:12 PM CST I have pended a medication refill for your review. L MAKER FIBERGLASS documented in this encounter Plan of Treatment Upcoming Encounters Date Type Department Care Team (Late st Contact Info) Description 05/29/2025 8:00 AM CDT Office Visit [facility] [address] [place] [address] Treva Zamora, SAS PROGRAMMER ANALYST, FISH DRESSING MACHINE FEEDER [address] [place] [phone] documented as of this encounter Visit Diagnoses Diagnosis Erectile dysfunction, unspecified erectile dysfunction type documented in this encounter Additional Health Concerns Infection Onset Date Last Indicated Resolved Time MSSA 06/13/2019 07/27/2020 07/19/2022 8:27 AM CDT COVID-19 Rule Out 06/08/2020 06/08/2020 06/08/2020 10:39 PM CDT COVID-19 Rule Out 08/26/2021 08/26/2021 08/27/2021 6:33 AM CDT COVID-19 Rule Out 09/01/2021 09/01/2021 09/01/2021 8:13 PM MODEL MAKER FIBERGLASS COVID-19 Rule Out 09/09/2021 09/09/2021 09/10/2021 1:46 AM MODEL MAKER FIBERGLASS COVID-19 Rule Out 06/21/2022 06/21/2022 06/21/2022 4:19 PM CDT COVID-19 Rule Out 06/21/2022 06/21/2022 06/21/2022 4:31 PM CDT COVID-19 Rule Out 06/27/2022 06/27/2022 06/27/2022 3:35 PM CDT COVID-19 Rule Out 08/17/2022 08/17/2022 08/17/2022 11:18 AM CDT COVID-19 Confirmed 08/17/2022 08/17/2022 3 8:17 PM MODEL MAKER FIBERGLASS COVID-19 Rule Out 07/03/2024 07/03/2024 07/03/2024 1:46 PM CDT COVID-19 Confirmed 07/03/2024 07/03/2024 4 8:17 PM MODEL MAKER FIBERGLASS documented as of this encounter Care Teams Database Programmer Analyst Relationship Specialty Start Date End Date Lucho Rock MD [address] [place] [address] PCP - General Family Medicine 1/28/21 documented as of this encounter
--- OUTSIDE RECORDS SUMMARY | 2025-04-16 00:30 | XMS_ITS | Encounter Summary ---
Author Organization [facility] er Address [address] [place] [address] Care Team Providers Care Metal Cutter Name Role Phone Lucho Rock MD Primary Care Provider [phone] Reason for Visit * Reason Onset Date Comments Med Refill Med Refill 05/10/2021 Encounter Details Date Type Department Care Team (Late st Contact Info) Description 05/05/2021 Refill [facility] [address] [place] [address] [phone] Harris Rosado MBBS [address] [place] [address] [phone] Mixed hyperlipidemia Social History Tobacco Use Types Packs/Day Years Used Date Smoking Tobacco: Never Smokeless Tobacco: Never Alcohol Use Standard Drinks/Week Comments Not Currently 0 (1 standard drink = 0.6 oz pure alcohol) Havent had a drink in ten years PHQ-2 Answer Date Recorded PHQ-9 Total Score 9 11/22/2020 Sex and Gender Information Value Date Recorded Sex Assigned at Not on file Legal Sex Male 6:43 PM CDT Gender Identity Not on file Sexual Orientation Not on file documented as of this encounter Miscellaneous Notes * Telephone Encounter - Shahrzad Mendez - 05/10/2021 9:29 AM CDT LMTCB. Sending another letter * Telephone Encounter - Shahrzad Mendez - 05/09/2021 9:47 AM CDT LMTCB. Patient was sent a letter on 04-04-21. * Telephone Encounter - Amanda Loya MA - 05/06/2021 3:32 PM CDT Patient was supposed to have returned for a visit in December. Please call patient and schedule diabetic f/u appt with non-fasting labs prior to appt. * Telephone Encounter - Tammy Hong MA - 05/06/2021 2:32 PM CDT Last visit in provider department: 2020 Last visit requested medication was discussed: 2020 Upcoming appointment with provider: none Last Rx: 02/04/2021 # 90, no refill Requested Prescriptions Pending Prescriptions Disp Refills ??? atorvastatin (LIPITOR) 40 MG tablet [Pharmacy Med Name: ATORVASTATIN CALCIUM 40MG TABS] 90 tablet 0 Sig: TAKE ONE TABLET BY MOUTH EVERY EVENING Labs: Component Latest Ref Rng & Units 07/01/2020 Cholesterol 0 - 199 mg/dL 153 Triglycerides 0 - 149 mg/dL 234 (H) HDL 40 - 250 mg/dL 32 (L) LDL Calculated 0 - 99 mg/dL 74 Vitals: BP Readings from Last 2 Encounters: 04/27/21 122/75 02/07/21 123/76 Per 2020 dictation Return in about 3 months (around 01/02/2021) Pt due to be seen. Please work with your PSR to help pt set up appt. Please advise on extension until appt. documented in this encounter Plan of Treatment Upcoming Encounters Date Type Department Care Team (Late st Contact Info) Description 05/29/2025 8:00 AM CDT Office Visit [facility] [address] [place] [address] Treva Zamora, FUR NAILER, CASEWORK SPECIALIST [address] [facility] [place] [phone] documented as of this encounter Goals Goal Patient Goal Type Associated Problems Recent Progress Patient-Stated? Author Routine Health Management General On track( 022 1:17 PM RETAIL SUPPORT SPECIALIST) No Beti Varela, RN Note: Routine Health Management Primary Care Provider Lucho Rock MD Future Scheduled Appointments Future Appointments Date Time Provider Department Center 01/20/2022 4:00 PM Kaila Bateman DPM [facility] Health Maintenance Health Maintenance Topic Date [...] Diabetes Management General No change(2021 1:17 PM RETAIL SUPPORT SPECIALIST) No Beti Varela, RN Note: Diabetes Management [...] Management General On track( 022 1:17 PM RETAIL SUPPORT SPECIALIST) Beti Grimm RN Note: Cardiovascular Management Essential hypertension Managed by (PCP; Cardiology; [facility]) Dr. Rock (PCP) Last: 09/29/21 Due: [...] Rule Out 09/01/2021 09/01/2021 09/01/2021 8:13 PM RETAIL SUPPORT SPECIALIST COVID-19 Rule Out 09/09/2021 09/09/2021 09/10/2021 1:46 AM RETAIL SUPPORT SPECIALIST COVID-19 Rule Out 06/21/2022 06/21/2022 06/21/2022 4:19 PM CDT COVID-19 Rule Out 06/21/2022 06/21/2022 06/21/2022 4:31 PM CDT COVID-19 Rule Out 06/27/2022 06/27/2022 06/27/2022 3:35 PM CDT COVID-19 Rule Out 08/17/2022 08/17/2022 08/17/2022 11:18 AM CDT COVID-19 Confirmed 08/17/2022 08/17/2022 3 8:17 PM RETAIL SUPPORT SPECIALIST COVID-19 Rule Out 07/03/2024 07/03/2024 07/03/2024 1:46 PM CDT COVID-19 Confirmed 07/03/2024 07/03/2024 4 8:17 PM RETAIL SUPPORT SPECIALIST documented as of this encounter Care Teams Metal Cutter Relationship Specialty Start Date End Date Lucho Rock MD [address] [facility] [address] [place] [address] PCP - General Family Medicine 11/18/20 documented as of this encounter
--- OUTSIDE RECORDS SUMMARY | 2025-04-16 00:30 | XMS_ITS | Encounter Summary ---
Author Organization [facility] er Address [address] [place] [address] Care Team Providers Care Joint Creaser Name Role Phone Lucho Rock MD Primary Care Provider [phone] Reason for Visit * Reason Comments Med Refill Encounter Details Date Type Department Care Team (Late st Contact Info) Description 06/03/2021 Refill [facility] [address] [place] [address] [phone] Harris Rosado MBBS [address] [place] [address] [phone] Mixed hyperlipidemia Social History Tobacco Use Types [...] encounter Miscellaneous Notes * Telephone Encounter - Beti Varela RN - 06/08/2021 1:49 PM CDT Noted. Left message to call back. Patient cancelled appt 06/06/21 due to lab work not getting done-he was unaware any was due and was notified Sunday prior which did not leave him enough time to complete. * Telephone Encounter - Harris Rosado MBBS - 06/08/2021 12:35 PM CDT Noted, thank you. * Telephone Encounter - Shahrzad Mendez - 06/08/2021 11:10 AM CDT Patient has been called many times including today and a message was left. A letter was sent 04-04 and 05-10 trying to get this patient to schedule. He canceled his appointment on 06-06. Last time patient saw Dr Jasso, patient was even asked to schedule an endo appointment and patient left without scheduling. Please advise. * Telephone Encounter - Jaqui Martines MA - 06/08/2021 8:48 AM CDT Please contact pt to schedule pre visit lab appt and appt with Dr Rosado. * Telephone Encounter - Tammy Hong MA - 06/08/2021 7:20 AM CDT Last visit in provider department: 2020 Last visit requested medication was discussed: 2020 Upcoming appointment with provider: none Last Rx: 05/06/2021 # 30, no refill Requested Prescriptions Pending Prescriptions Disp Refills ??? atorvastatin (LIPITOR) 40 MG tablet [Pharmacy Med Name: ATORVASTATIN CALCIUM 40MG TABS] 30 tablet 0 Sig: TAKE ONE TABLET BY MOUTH IN THE EVENING Labs: Component Latest Ref Rng & Units 07/01/2020 Cholesterol 0 - 199 mg/dL 153 Triglycerides 0 - 149 mg/dL 234 (H) HDL 40 - 250 mg/dL 32 (L) LDL Calculated 0 - 99 mg/dL 74 Vitals: BP Readings from Last 2 Encounters: 04/27/21 122/75 02/07/21 123/76 Per 2020 dictation Follow up in about 3 months, with A1c Pt due to be seen. Please work with your PSR to help pt set up appt. Please advise on extension until appt. documented in this encounter Plan of Treatment Upcoming Encounters Date Type Department Care Team (Late st Contact Info) Description 05/29/2025 8:00 AM CDT Office Visit [facility] [address] [place] [phone] Treva Zamora, ELEMENTARY SCHOOL ART TEACHER, INCIDENT RESPONSE COORDINATOR 210 [place] [phone] documented as of this encounter Goals Goal Patient Goal Type Associated Problems Recent Progress Patient-Stated? Author Routine Health Management General On track( 022 1:17 PM MARBLE CARVER) No Beti Varela, RN Note: Routine Health [...] Diabetes Management General No change(2021 1:17 PM MARBLE CARVER) No Beti Varela, RN Note: Diabetes Management [...] Management General On track( 022 1:17 PM MARBLE CARVER) Beti Grimm RN Note: Cardiovascular Management Essential [...] Rule Out 09/01/2021 09/01/2021 09/01/2021 8:13 PM MARBLE CARVER COVID-19 Rule Out 09/09/2021 09/09/2021 09/10/2021 1:46 AM MARBLE CARVER COVID-19 Rule Out 06/21/2022 06/21/2022 06/21/2022 4:19 PM CDT COVID-19 Rule Out 06/21/2022 06/21/2022 06/21/2022 4:31 PM CDT COVID-19 Rule Out 06/27/2022 06/27/2022 06/27/2022 3:35 PM CDT COVID-19 Rule Out 08/17/2022 08/17/2022 08/17/2022 11:18 AM CDT COVID-19 Confirmed 08/17/2022 08/17/2022 3 8:17 PM MARBLE CARVER COVID-19 Rule Out 07/03/2024 07/03/2024 07/03/2024 1:46 PM CDT COVID-19 Confirmed 07/03/2024 07/03/2024 8:17 PM MARBLE CARVER documented as of this encounter Care Teams Joint Creaser Relationship Specialty Start Date End Date Lucho Rock MD [address] [place] [address] PCP - General Family Medicine 11/18/20 documented as of this encounter
--- OUTSIDE RECORDS SUMMARY | 2025-04-16 00:30 | XMS_ITS | Encounter Summary ---
Author Organization [facility] er Address [address] [place] [address] Care Team Providers Care Job Analysis Manager Name Role Phone Lucho Rock MD Primary Care Provider [phone] Reason for Visit * Reason Comments Med Refill Encounter Details Date Type Department Care Team (Late st Contact Info) Description 12/30/2020 Refill [facility] [address] [place] [phone] Harris Rosado MBBS [address] [place] [address] [phone] Type 2 diabetes mellitus with hyperglycemia, without [...] encounter Miscellaneous Notes * Telephone Encounter - Liliane Lkue MA - 01/03/2021 9:10 AM CDT Renewal sent to requesting pharmacy 07/07/2020 #180 +[address] Rosado E-Prescribing Status: Receipt confirmed by pharmacy (07/07/2020 11:50 documented in this encounter Plan of Treatment Upcoming Encounters Date Type Department Care Team (Late st Contact Info) Description 05/29/2025 8:00 AM CDT Office Visit [facility] [address] [place] [phone] Treva Zamora APRN, DRAG DOWN [address] [facility] [place] [place] [address] documented as of this encounter Goals Goal Patient Goal Type Associated Problems Recent Progress Patient-Stated? Author Routine Health Management General On track( 022 1:17 PM SECOND OFFICER) No Beti Varela, RN Note: Routine Health Management Primary Care Provider Lucho Rock MD Future Scheduled Appointments Future Appointments Date Time Provider Department Center 01/20/2022 4:00 PM Kaila Bateman DPM [facility] Health Maintenance Health Maintenance Topic Date [...] Diabetes Management General No change(2021 1:17 PM SECOND OFFICER) No Beti Varela, RN Note: Diabetes Management [...] Rule Out 09/01/2021 09/01/2021 09/01/2021 8:13 PM SECOND OFFICER COVID-19 Rule Out 09/09/2021 09/09/2021 09/10/2021 1:46 AM SECOND OFFICER COVID-19 Rule Out 06/21/2022 06/21/2022 06/21/2022 4:19 PM CDT COVID-19 Rule Out 06/21/2022 06/21/2022 06/21/2022 4:31 PM CDT COVID-19 Rule Out 06/27/2022 06/27/2022 06/27/2022 3:35 PM CDT COVID-19 Rule Out 08/17/2022 08/17/2022 08/17/2022 11:18 AM CDT COVID-19 Confirmed 08/17/2022 08/17/2022 8:17 PM SECOND OFFICER COVID-19 Rule Out 07/03/2024 07/03/2024 07/03/2024 1:46 PM CDT COVID-19 Confirmed 07/03/2024 07/03/2024 4 8:17 PM SECOND OFFICER documented as of this encounter Care Teams Job Analysis Manager Relationship Specialty Start Date End Date Lucho Rock MD [address] [place] [address] PCP - General Family Medicine 11/18/20 documented as of this encounter
--- OUTSIDE RECORDS SUMMARY | 2025-04-16 00:30 | XMS_ITS | Encounter Summary ---
Author Organization [facility] er Address [address] [place] [address] Care Team Providers Care Group Burner Machine Name Role Phone Lucho Rock MD Primary Care Provider [phone] Reason for Visit * Reason Comments Med Refill Encounter Details Date Type Department Care Team (Late st Contact Info) Description 03/30/2023 Refill [facility] [address] [place] [address] [phone] Harris Rosado MBBS [address] [place] [address] [phone] Type 2 diabetes mellitus with hyperglycemia, without [...] often do you attend chur ch or confucianism services? Never 12/18/2022 Do you belong to any clubs o r organizations such as buddhist groups, unions, fraternal or athletic groups, or [...] Date Recorded PHQ-9 Total Score 2 12/27/2022 [facility] - Occupational [...] place to sleep or slept in a alf (including now)? 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 Not on file Not on file Not on file documented as of this encounter Miscellaneous Notes * Telephone Encounter - Nasrin Sams, ROXANNE - 04/03/2023 9:35 AM CDT Upcoming appointment with provider: Visit date not found Last visit in provider department: 02/08/2023 Last visit requested medication was discussed: 02/08/23 Last Rx: 02/08/23 #90 with 1 refill Requested Prescriptions Pending Prescriptions Disp Refills pioglitazone (ACTOS) 30 MG tablet [Pharmacy Med Name: PIOGLITAZONE HCL 30MG TABS] 90 tablet 0 Sig: TAKE ONE TABLET BY MOUTH EVERY DAY Labs: Component Latest Ref Rng 12/27/2022 Hemoglobin A1C 4.0 - 5.6 % A1C 12.0 (H) (H) High Component Latest Ref Rng 08/17/2022 Microalbumin,mg/day 0.0 - 16.6 mg/L 25.6 (H) Creatinine, Urine mg/dL 83 Microalb/Creat Ratio 0 - 16 mg/g 31 (H) (H) High Component Latest Ref Rng 08/17/2022 Fasting? Yes Cholesterol 0 - 199 mg/dL 134 Triglycerides 0 - 149 mg/dL 130 HDL 40 - 250 mg/dL 39 (L) LDL Calculated 0 - 99 mg/dL 69 (L) Low Component Latest Ref Rng 08/17/2022 Sodium 135 - 145 mEq/L 135 Potassium 3.5 - 5.1 mEq/L 4.6 Chloride 98 - 107 mEq/L 99 CO2 22 - 31 mmol/L 30 BUN 5 - 25 mg/dL 23 Creatinine 0.6 - 1.4 mg/dL 1.3 Glucose 70 - 100 mg/dL 106 (H) Calcium, Total,S 8.4 - 10.2 mg/dL 9.2 (H) High Vitals: BP Readings from Last 2 Encounters: 02/08/23 106/58 02/08/23 122/75 Last Controlled Substance Agreement (CSA): Last Random Urine Drug Screen (RUDS): documented in this encounter Plan of Treatment Upcoming Encounters Date Type Department Care Team (Late st Contact Info) Description 05/29/2025 8:00 AM CDT Office Visit [facility] [address] [place] [phone] Treva Zamora, INCIDENT MANAGER, WELDER METAL FAB 210 [place] [address] documented as of this encounter Goals Goal Patient Goal Type Associated Problems Recent Progress Patient-Stated? Author Routine Health Management General On track( 022 1:17 PM DRAWING FRAME TENDER) Beti Grimm RN Note: Routine Health Management Primary Care Provider Lucho Rock MD Future Scheduled Appointments Future Appointments Date Time Provider Department Center 01/20/2022 4:00 PM Kaila Bateman DPM [facility] Health Maintenance Health Maintenance Topic Date Due COVID-19 Vaccine (1) Never done Hemoglobin A1C 11/23/2021 Lipid Panel 07/01/2022 Urine Protein Screening 07/01/2022 Diabetic Foot Exam 07/22/2022 Ophthalmology Exam 09/22/2022 Colorectal Cancer Screening: Colonoscopy 01/11/2024 [facility] Pneumococcal Vaccine: <64 (2 of 2 - PPSV23) 2029 [facility] Pneumococcal Vaccine: 65+ Years (2 of 2 - PPSV23) 2029 HPV Vaccines Aged Out Notes: Diabetes Management General No change(2021 1:17 PM DRAWING FRAME TENDER) No Beti Varela RN Note: Diabetes Management [...] Management General On track( 022 1:17 PM DRAWING FRAME TENDER) No Beti Varela, RN Note: Cardiovascular Management Essential hypertension Managed by (PCP; Cardiology; [facility]) Dr. Rock (PCP) Last: [...] CDT COVID-19 Confirmed 07/03/2024 07/03/2024 8:17 PM DRAWING FRAME TENDER documented as of this encounter Care Teams Group Burner Machine Relationship Specialty Start Date End Date Lucho Rock MD [address] [facility] [address] [place] [address] PCP - General Family Medicine 11/18/20 documented as of this encounter
--- OUTSIDE RECORDS SUMMARY | 2025-04-16 00:30 | XMS_ITS | Encounter Summary ---
Author Organization [facility] er Address [address] [place] [address] Care Team Providers Care Software Tools Developer Name Role Phone Lucho Rock MD Primary Care Provider [phone] Reason for Visit * Reason Comments Med Refill Encounter Details Date Type Department Care Team (Late st Contact Info) Description 07/28/2021 Refill [facility] [address] [place] [address] [phone] Harris Rosado MBBS [address] [place] [address] [phone] Type 2 diabetes mellitus with hyperglycemia, without [...] Miscellaneous Notes * Telephone Encounter - Liliane Luke MA - 07/28/2021 10:47 AM CDT Last visit requested medication was discussed: 07/22/2021 Upcoming appointment with provider: 09/30/2021 Last Rx: #90 +3 refills 07/07/2020 Requested Prescriptions Pending Prescriptions Disp Refills ??? Jardiance 25 MG tablet [Pharmacy Med Name: JARDIANCE 25MG TABS] 90 tablet 3 Sig: TAKE ONE TABLET BY MOUTH EVERY DAY Labs: Component Latest Ref Rng & Units 07/01/2021 Hemoglobin A1C 4.0 - 5.6 % A1C 9.6 (H) Component Latest Ref Rng & Units 07/01/2021 Microalbumin,mg/day 0.0 - 16.6 mg/L 10.1 Creatinine, Urine mg/dL 87 Microalb/Creat Ratio 0 - 16 mg/g 12 Vitals: BP Readings from Last 2 Encounters: 07/22/21 138/84 07/22/21 138/84 documented in this encounter Plan of Treatment Upcoming Encounters Date Type Department Care Team (Late st Contact Info) Description 05/29/2025 8:00 AM CDT Office Visit [facility] [address] [place] [phone] Treva Zamora APRN, MIGRATORY FARM HAND [address] [place] [phone] documented as of this encounter Goals Goal Patient Goal Type Associated Problems Recent Progress Patient-Stated? Author Routine Health Management General On track( 022 1:17 PM COMFORT STATION ATTENDANT) No Beti Varela, RN Note: Routine Health Management Primary Care Provider Lucho Rock MD Future Scheduled Appointments Future Appointments Date Time Provider Department Center 01/20/2022 4:00 PM Kaila Bateman DPM [facility] Health Maintenance Health Maintenance Topic Date [...] Diabetes Management General No change(2021 1:17 PM COMFORT STATION ATTENDANT) No Beti Varela RN Note: Diabetes Management [...] Management General On track( 022 1:17 PM COMFORT STATION ATTENDANT) No Beti Varela, RN Note: Cardiovascular Management Essential hypertension Managed by (PCP; Cardiology; [facility]) Dr. Rock (PCP) Last: 09/29/21 [...] Rule Out 09/01/2021 09/01/2021 09/01/2021 8:13 PM COMFORT STATION ATTENDANT COVID-19 Rule Out 09/09/2021 09/09/2021 09/10/2021 1:46 AM COMFORT STATION ATTENDANT COVID-19 Rule Out 06/21/2022 06/21/2022 06/21/2022 4:19 PM CDT COVID-19 Rule Out 06/21/2022 06/21/2022 06/21/2022 4:31 PM CDT COVID-19 Rule Out 06/27/2022 06/27/2022 06/27/2022 3:35 PM CDT COVID-19 Rule Out 08/17/2022 08/17/2022 08/17/2022 11:18 AM CDT COVID-19 Confirmed 08/17/2022 08/17/2022 3 8:17 PM COMFORT STATION ATTENDANT COVID-19 Rule Out 07/03/2024 07/03/2024 07/03/2024 1:46 PM CDT COVID-19 Confirmed 07/03/2024 07/03/2024 4 8:17 PM COMFORT STATION ATTENDANT documented as of this encounter Care Teams Software Tools Developer Relationship Specialty Start Date End Date Lucho Rock MD [address] [place] [address] PCP - General Family Medicine 11/18/20 documented as of this encounter
--- OUTSIDE RECORDS SUMMARY | 2025-04-16 00:30 | XMS_ITS | Clinical Summary ---
Author Organization [facility] Address [address] [place] [address] Care Team Providers Care Director Of Development And Marketing Name Role Phone Lucho Rock MD Primary Care Provider [phone] Allergies No known active allergies Medications fenofibrate (TRICOR) 145 MG tabletIndications: Mixed hyperlipidemia TAKE ONE TABLET BY MOUTH EVERY DAY 90 tablet 3 11/12/19 24 Active Jardiance 25 MG tabletIndications: Type 2 diabetes mellitus with hyperglycemia, without long-term current use of insulin (HCC) TAKE ONE TABLET BY MOUTH EVERY DAY 90 tablet 1 04/30/20 24 Active Microlet Lancets misc 12/16/19 25 Active tamsulosin (FLOMAX) 0.4 MG 24 hr capsule Take 1 capsule (0.4 mg total) by mouth daily 10/03/20 24 025 Active Lancets misc Dispense item covered by pt ins. E11.9 IDDM type II - Test 2 times/day. Supply lancing device with lancets 12/16/19 25 Active insulin glargine (LANTUS) 100 UNIT/ML injectionIndicatio ns:Type 2 Diabetes Mellitus Inject 16 Units under the skin every night 15 mL 02/03/20 25 Active Insulin Pen Needle 31G X 8 MM miscIndications:Ty pe 2 diabetes mellitus with hyperglycemia, without long-term current use of insulin (HCC) Use to inject 1 time daily as directed. 100 each 02/03/20 25 026 Active Alcohol Swabs (Alcohol Pads) 70 % padsIndications:Ty pe 2 diabetes mellitus with hyperglycemia, without long-term current use of insulin (HCC) 100 each 1 (one) time each day 100 each 3 02/03/20 25 Active Blood Glucose Monitoring Suppl (CONTOUR NEXT MONITOR) w/Device kitIndications:Krystal betes mellitus type II, non insulin dependent (HCC) 1 each 1 (one) time each day Test blood sugar x 2 daily 1 kit 08/07/20 19 025 Discontinued glucose blood (Saima Contour Next Test) test stripIndications:T ype 2 diabetes mellitus with hyperglycemia, without long-term current use of insulin ([facility]) Test blood sugar 3-4 times daily, fasting and before evening meal 200 each 11 05/28/20 23 025 Discontinued atorvastatin (LIPITOR) 40 MG tabletIndications: Type 2 diabetes mellitus with hyperglycemia, without long-term current use of insulin ([facility]),Mixed hyperlipidemia Take 1 tablet (40 mg total) by mouth 1 (one) time each day in the evening 90 tablet 3 09/20/20 23 025 Discontinued lisinopril (ZESTRIL) 10 MG tabletIndications: Type 2 diabetes mellitus with hyperglycemia, without long-term current use of insulin ([facility]),Essential hypertension Take 1 tablet (10 mg total) by mouth 1 (one) time each day in the morning 90 tablet 3 09/20/20 23 025 Discontinued pioglitazone (ACTOS) 45 MG tabletIndications: Type 2 diabetes mellitus with hyperglycemia, without long-term current use of insulin ([facility]) TAKE 1 TABLET BY MOUTH EVERY DAY 90 tablet 1 02/06/20 24 025 Discontinued glipiZIDE (GLUCOTROL XL) 10 MG 24 hr tabletIndications: Type 2 diabetes mellitus with hyperglycemia, without long-term current use of insulin ([facility]) TAKE ONE TABLET BY MOUTH TWICE A DAY 180 tablet 07/23/20 24 025 Discontinued tamsulosin (FLOMAX) 0.4 MG 24 hr capsuleIndications :BPH with obstruction/lower urinary tract symptoms,Incomplet e bladder emptying Take 1 capsule (0.4 mg total) by mouth 2 (two) times a day 180 capsule 3 10/03/20 24 025 Discontinued Empagliflozin (Jardiance) 25 MG tablet Take 25 mg by mouth daily 12/16/19 25 025 Discontinued glipiZIDE (GLUCOTROL XL) 10 MG 24 hr tablet Take 1 tablet (10 mg total) by mouth 2 times daily 12/16/19 25 025 Discontinued metFORMIN (GLUCOPHAGE) 1000 MG tablet Take 1 tablet (1,000 mg total) by mouth 2 times daily 12/16/19 025 Discontinued Active Problems Problem Noted Date Diagnosed Date Colovesical fistula 02/24/2025 Pneumaturia 01/30/2025 Diabetic ulcer of left lower leg associated with type 2 diabetes mellitus, limited to breakdown of skin 04/11/2024 Family history of prostate cancer 07/04/2023 Diabetic foot ulcer 04/07/2022 Diabetic ulcer of left midfo ot associated with diabetes mellitus due to underlying condition, limited to breakdown of skin 03/26/2022 Diabetic ulcer of toe of lef t foot associated with type 2 diabetes mellitus, limited to breakdown of skin 03/16/2022 History of amputation of lesser toe of right bry t 01/20/2022 History of amputation of right great toe 022 Corns and callosities 01/20/2022 Thickened nails 01/20/2022 Callus of foot 07/22/2021 Retinopathy 10/07/2020 Osteomyelitis of right foot 07/27/2020 Cellulitis of right toe 07/25/2020 Diabetic ulcer of toe of rig ht foot associated with type 2 diabetes mellitus 07/25/2020 Neuropathy 07/08/2020 Diabetic ulcer of toe of rig ht foot associated with type 2 diabetes mellitus, with necrosis of bone 06/02/2020 Encounter for screening for COVID-19 05/20/2020 Overview (12/18/2022): Added automatically from request for surgery [id number] History of amputation of toe 05/19/2020 Diabetic ulcer of toe of rig ht foot associated with diabetes mellitus due to underlying condition, limited to breakdown of skin 12/04/2019 Diabetic ulcer of toe of rig ht foot associated with type 2 diabetes mellitus, with fat layer exposed 09/23/2019 Assessment & Plan (11/21/2019 5:33 PM BODY MECHANIC): Wound is 99% healed. There is only a pinpoint opening in the center of the wound area with minimal callus formation around the wound. No tunneling, erythema, induration, fluctuance or undermining. The area is insensate also. Wound was dressed with marjorie and covered with mepilex foam and medipore tape. Patient has supplied to change dressings at home after showering. He has also been compliant with wearing shoes, clean socks, etc. Follow up in 1 week at which time hopefully the wound will be completely healed. Assessment & Plan (11/14/2019 3:10 PM BODY MECHANIC): Right great toe plantar wound is without erythema, induration, fluctuance, or tunneling. There is some epibole and undermining at the 9 and 1 areas which were removed with debridement. No pain in the area. No drainage. No sign of infection. After debridement, the wound was cleansed and dressed with marjorie and covered with tegaderm small foam [place]. Follow up in 1 week. Type 2 diabetes mellitus wit h hyperglycemia, without long-term current use of insulin 06/19/2019 Essential hypertension 06/19/2019 Mixed hyperlipidemia 06/19/2019 Migraine without status migrainosus, not intract able 05/17/2018 Type 2 diabetes mellitus wit h diabetic polyneuropathy, without long-term current use of insulin 03/30/2017 Obesity, unspecified 05/19/2013 Isolated proteinuria with other morphologic lesi on 10/08/2012 Diabetic dermopathy 03/05/2006 Acute low back pain 04/04/2004 Assessment & Plan (10/10/2024 12:56 PM BODY MECHANIC): Start Naproxen 375 mg every morning and every night Start Cyclobenzaprine 10 mg as needed if increased spasms or to help rest at night. Do not drive on this medication. Schedule x-ray of lower back in [place] Follow up next week with PCP if not getting better Possibly referral to physical therapy if not better Resolved Problems Problem Noted Date Diagnosed Date Resolved Date History of pancreatitis 08/09/201906/22 Diabetic ulcer of right foot associated with diabetes mellitus due to underlying condition, with fat layer exposed 07/24/20192019 Diabetic ulcer of right great toe 06/27/2019 10/28/2019 Ulcer of great toe, right, l imited to breakdown of skin 06/27/2019 10/28/2019 Drug-induced pancreatitis 06/19/2019 Coital headache 02/23/2015 06/29/2022 Drug-induced acute pancreatitis 10/09/2012 07/01/2020 Type 2 diabetes mellitus with ketoacidosis 10/08/2012 07/01/2020 Lyme disease 04/22/2012 07/01/2020 Encounters Date Type Department Care Team Description 03/27/2025 Refill [facility] [address] [place] [address] Harris Rosado MBBS Type 2 diabetes mellitus with hyperglycemia, without long-term current use of insulin (HCC); Mixed hyperlipidemia 03/20/2025 8:00 AM CDT Office Visit [facility] [address] [place] [address] Jessie Lal DPM Type 2 diabetes mellitus with diabetic polyneuropathy, without long-term current use of insulin (HCC) (Primary Dx); History of amputation of right great toe; History of amputation of lesser toe of right foot; Callus of foot; Thickened nails 03/05/2025 Results Follow-Up [facility] General Surgery [address] [place] [address] Marlon Lord MD 02/20/2025 4:20 PM CDT Consult [facility] General Surgery [address] [place] [address] Marlon Lord MD Screening for colon cancer (Primary Dx); Colovesical fistula 02/13/2025 12:53 PM CDT Anesthesia Event [facility] Procedure Room [address] [place] [address] Estefania Hancock APRN, Federico Koenig DNAP, APRN,BURKE 02/13/2025 12:35 PM CDT - 02/13/2025 1:05 PM CDT Surgery [facility] OR Procedure Room [address] [place] [address] Alex Martino MD COLONOSCOPY 02/13/2025 11:48 AM CDT - 02/13/2025 2:06 PM CDT Hospital Encounter [facility] Procedure Room [address] [place] [address] Alex Martino MD Discharge Disposition: Home or Self Care 02/13/2025 Travel 02/12/2025 8:59 AM CDT Anesthesia Event [facility] OR Procedure Room [address] [place] [address] Ady Rhodes, DNAP,SEO EXECUTIVE,LANDSCAPE MAINTENANCE INTERNSHIP Howie Cabrera, SEO EXECUTIVE, LANDSCAPE MAINTENANCE INTERNSHIP 02/12/2025 8:45 AM CDT - 02/12/2025 9:15 AM CDT Surgery [facility] OR Procedure Room [address] [place] [address] Marlon Lord MD COLONOSCOPY 02/12/2025 7:48 AM CDT - 02/12/2025 9:38 AM CDT Hospital Encounter [facility] OR Procedure Room [address] [place] [address] Marlon Lord MD Discharge Disposition: Home or Self Care 02/12/2025 Orders Only [facility] General Surgery [address] [place] [address] Marlon Lord MD Pneumaturia (Primary Dx) 02/12/2025 Travel 02/05/2025 2:40 PM CDT Clinical Support [facility] [address] [place] [address] 02/04/2025 Results Follow-Up [facility] [address] Lucho Rock MD Acute cystitis without hematuria (Primary Dx) 02/03/2025 3:30 PM CDT Lab [facility] [address] Type 2 diabetes mellitus with hyperglycemia, without long-term current use of insulin (HCC) 02/03/2025 3:20 PM CDT Clinical Support [facility] [address] Healthcare maintenance (Primary Dx) 02/03/[address] [facility] [address] Lucho Rock MD 02/02/2025 4:15 PM CDT Lab [address] [address] Pneumaturia 02/02/2025 3:40 PM CDT Consult [address] [address] Lucho Rock MD Pre-op evaluation (Primary Dx); Pneumaturia; Type 2 diabetes mellitus with hyperglycemia, without long-term current use of insulin (HCC) 01/30/2025 11:00 AM CDT Lab [facility] [address] [place] [address] Pneumaturia 01/30/2025 10:20 AM CDT Consult [facility] General Surgery [address] [place] [address] Marlon Lord MD History of colon polyps (Primary Dx); Pneumaturia 01/30/2025 9:45 AM CDT Office Visit [facility] Urology [address] [place] [address] Chivo Olsen MD BPH with obstruction/lower urinary tract symptoms (Primary Dx); Colovesical fistula 01/30/2025 Results Follow-Up [facility] General Surgery [address] [place] [address] Marlon Lord MD Pneumaturia (Primary Dx) 01/26/2025 Telephone [facility] Urology [address] [place] [address] Chivo Olsen MD 01/23/2025 7:54 AM CDT - 01/23/2025 11:59 PM CDT Hospital Encounter [facility] CT Scan [address] [place] [address] Discharge Disposition: Home or Self Care 01/16/2025 9:45 AM CDT Lab [facility] [address] [place] [address] Pneumaturia 01/16/2025 8:00 AM CDT Office Visit [facility] Urology [address] [place] [address] Chivo Olsen MD BPH with obstruction/lower urinary tract symptoms (Primary Dx); Family hx of prostate cancer; Pneumaturia from Last 3 Months Immunizations Immunization Administration Dates Next Due Pneumococcal Conjugate PCV20 02/03/2025 Pneumococcal Polysaccharide 05/17/2018 Td 10/22/1997 Tdap 05/17/2018,04/03/2008 Family History Medical History Relation Comments Diabetes Father Glaucoma Father Prostate cancer Father age 67 Colon polyps Father's Brother Cancer Maternal Grandfather Cataracts Maternal Grandfather Cataracts Maternal Grandmother Diabetes Mother Cataracts Paternal Grandfather Cataracts Paternal Grandmother Relation Status Comments Father Alive Father's Brother Maternal Grandfather (Age 72) cancer Maternal Grandmother (Age 73) Mother Alive Paternal Grandfather Paternal Grandmother Social History Tobacco Use Types Packs/Day Years Used Date Smoking Tobacco: Never Smokeless Tobacco: Never Tobacco Cessation:Counseling Given: Not Answered Alcohol Use Standard Drinks/Week Comments Not Currently 0 (1 standard drink = 0.6 oz pur e alcohol) very minimal B1300 Health Literacy Answer Date Recor ded How often do you need to hav e someone help you when you read instructions, pamphlets, or other written material from your doctor or pharmacy? Never 08/20/2024 [employer] Answer Date Recorded In the past 12 months has e [employer], gas, oil, or water [employer] threatened to shut off services in your [...] often do you attend chur ch or rastafari services? Never 08/20/2024 Do you belong to any clubs o r organizations such as roman catholic groups, unions, fraternal or athletic groups, or [...] Date Recorded PHQ-9 Total Score 2 02/02/2025 [facility] - Occupational Stress [...] any time in the past 12 m [facility], were you homeless or living in [...] harm? Never 08/20/2024 How often does anyone, johnconnie fadi family and friends, threaten you with harm? 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 Not on file Not on file Last Filed Vital Signs Vital Sign Reading Time Taken Comments Blood Pressure 98/63 03/20/2025 7:59 AM CDT Pulse 80 02/20/2025 4:40 PM CDT Temperature 36.2 C (97.1 F) 02/20/2025 4:40 PM CDT Respiratory Rate 16 02/20/2025 4:40 PM CDT Oxygen Saturation 94% 02/13/2025 1:45 PM CDT Inhaled Oxygen Concentration - - Weight 79.4 kg (175 lb) 02/13/2025 12:11 PM CDT Height 174.5 cm (5' 8.7) 02/02/2025 3:46 PM CDT Body Mass Index 26.07 02/02/2025 3:46 PM CDT Plan of Treatment Upcoming Encounters Date Type Department Care Team (Late st Contact Info) Description 05/29/2025 8:00 AM CDT Office Visit [facility] [address] [place] [address] Treva Zamora, SEO EXECUTIVE, ACCOUNTANT SUPERVISOR [address] [place] [address] Health Maintenance Due Date Last Done Comments CT Colonography 1964 Sigmoidoscopy 1964 iFOBT 1965 Zoster Vaccines (1 of 2) 2014 COVID-19 Vaccine ( season) 2024 Diabetes: Urine Protein Screening 02/05/2025 02/06/2024, 08/17/2022, 07/01/2021, Additional history exists Lipid Panel 02/05/2025 02/06/2024, 07/23, 07/01/2021, Additional history exists Influenza Vaccine (Season Ended) 2025 Diabetes: Foot Exam 07/18/2025 07/18/2024, 10/26/2023, 05/26/2022, Additional history exists Diabetes: Hemoglobin A1C 08/05/2025 025, 08/20/2024, 05/30/2024, Additional history exists Diabetes: Retinopathy Screening 09/05/2026 09/05/2024, 09/05/2024, 09/05/2024, Additional history exists Colonoscopy 02/14/2028 02/13/2025, 01/21, 10/01/2023, Additional history exists Colorectal Cancer Screening 02/14/2028 FIT-DNA 03/02/2028 03/02/2025 DTaP,Tdap,and Td Vaccines (3 - Td or Tdap) 05/17/2028 05/17/2018, 04/03/2008, 10/22/1997 Pneumococcal Vaccine: 50+ Years Completed 02/03/2025, 05/17/2018 HPV Vaccines Aged Out No longer eligi jovita based on patient's age to complete this topic Goals Goal Patient Goal Type Associated Problems Recent Progress Patient-Stated? Author Routine Health Management General On track( 022 1:17 PM BODY MECHANIC) No Beti Varela RN Note: Routine Health Management Primary Care Provider Lucho Rock MD Future Scheduled Appointments Future Appointments Date Time Provider Department Center 01/20/2022 4:00 PM Kaila Bateman DPM [facility] Health Maintenance Health Maintenance Topic Date Due COVID-19 Vaccine (1) Never done Hemoglobin A1C 11/23/2021 Lipid Panel 07/01/2022 Urine Protein Screening 07/01/2022 Diabetic Foot Exam 07/22/2022 Ophthalmology Exam 09/22/2022 Colorectal Cancer Screening: Colonoscopy 01/11/2024 [facility] Pneumococcal Vaccine: <64 (2 of 2 - PPSV23) 2029 [facility] Pneumococcal Vaccine: 65+ Years (2 of 2 - PPSV23) 2029 HPV Vaccines Aged Out Notes: Diabetes Management General No change(2021 1:17 PM BODY MECHANIC) No Beti Varela, RN Note: Diabetes Management [...] Management General On track( 022 1:17 PM BODY MECHANIC) Beti Grimm RN Note: Cardiovascular Management Essential hypertension Managed by ([facility]P; [facility] Dr. Rock (PCP) Last: 09/29/21 Due: [...] daily Lifestyle management (diet and exercise) Notes: Medical Devices Implanted Type Area First Grade Teacher Device Identifier Shelf Expiration Date Model / Serial / Lot 1-Piece Iol With Tecnis - [id number] - [id number] - [id number] Implanted:Qty: 1 on 08/31/2021 by Israel Garcia MD at [facility] Right: Eye 06/26/2024 [id number] / [id number] / 1-Piece Iol With Tecnis - [id number] - [id number] - [id number] Implanted:Qty: 1 on 09/14/2021 by Israel Garcia MD at [facility] Left: Eye 07/30/2024 [id number] / [id number] / Procedures Procedure Name Priority Date/Time Associated Diagnosis Comments COLOGUARD Routine 03/02/2025 6:00 PM CDT Screening for colon cancer COLONOSCOPY 02/13/2025 12:44 PM CDT History of colon polyps POCT PRECISION GLUCOSE Routine 02/13/2025 12:21 PM CDT COLONOSCOPY 02/12/2025 8:50 AM CDT History of colon polyps POCT PRECISION GLUCOSE Routine 02/12/2025 8:40 AM CDT HEMOGLOBIN A1C Routine 02/03/2025 3:25 PM CDT Type 2 diabetes mellitus with hyperglycemia, without long-term current use of insulin (HCC) URINE CULTURE Routine 02/02/2025 4:16 PM CDT Pneumaturia URINALYSIS-MICROSCO PIC EXAM (REFLEXED) Routine 02/02/2025 4:00 PM CDT Pneumaturia URINALYSIS WITH REFLEX MICROSCOPIC Routine 02/02/2025 4:00 PM CDT Pneumaturia ADD-ON TEST REQUEST Routine 02/02/2025 8 :14 AM CDT Pneumaturia URINALYSIS-MICROSCO PIC EXAM (REFLEXED) Routine 01/30/2025 11:01 AM CDT Pneumaturia URINALYSIS WITH REFLEX MICROSCOPIC Routine 01/30/2025 11:[address] ABDOMEN PELVIS W CONTRAST Routine 01/23/2025 9:27 AM CDT Pneumaturia ESTIMATED GLOMERULAR FILTRATION RATE (EGFR) Routine 01/16/2025 9:37 AM CDT Pneumaturia BASIC METABOLIC PANEL Routine 01/16/2025 9:37 AM CDT Pneumaturia MICROALBUMIN/CREATI NINE RATIO Routine 02/06/2024 4:05 PM CDT Type 2 diabetes mellitus with hyperglycemia, without long-term current use of insulin (HCC) Essential hypertension LIPID PANEL Routine 02/06/2024 4:03 PM CDT Type 2 diabetes mellitus with hyperglycemia, without long-term current use of insulin (HCC) Essential hypertension Mixed hyperlipidemia from Last 3 Months or Most Recently Relevant to Health Maintenance Results * (ABNORMAL) POCT Precision glucose (02/13/2025 12:21 PM CDT) Only the most recent of2 resultswithin the time period is included. Glucose Blood, POC 111(H) 70 - 100 mg/dL 02/13/2025 12:22 PM CDT [facility] Comment: Meter ID: [id number] Capillary whole blood specimens should not be used in patients receiving intensive medical intervention/therapy because of the potential for pre-analytical collection error and specifically in patients with decreased peripheral blood flow, as it may not truly reflect the patient?s true physiological state. Examples include, but are not limited to, severe hypotension, shock, hyperosmolar-hyperglycemia (with or without ketosis), and severe dehydration. 02/13/2025 12:2 1 PM CDT 02/13/2025 12:22 PM CDT us Alex Martino MD LAB POINT OF CARE TE ST DOCKED DEVICE UNSOLICITED RESULTS Final Result [facility] [address] [place] [address] * (ABNORMAL) Hemoglobin A1c (02/03/2025 3:25 PM CDT) Hemoglobin A1C 13.9(H) 4.0 - 5.6 % A1C 02/03/2025 5:54 PM CDT [facility] Comment: Reference Range 4.0-5.6% is for non- adults >=18 yrs <5.6% Non-Diabetic 5.7-6.4% Increased risk of Diabetes >=6.5% Indicative of Diabetes <7.0% ADA goal for glycemic control Methodology may not detect all hemoglobin variants which can affect A1c results. Method certified by National Glycohemoglobin Standardization Program. Blood (Blood, Venous) 02/03/2025 3:25 PM CDT 02/03/2025 5:10 PM CDT Lucho Rock MD LAB BLOOD ORDERABLES Final R esult Performing Organization Address [facility]/ZIP Co de Phone Number [facility] [address] [place] [phone] * (ABNORMAL) Urine culture (02/02/2025 4:16 PM CDT) Urine Culture Escherichia coli >100,000 cfu/ml (A) 02/05/2025 7:46 AM CDT [facility] Urine (Urine, Clean Catch) 02/02/2025 4:16 PM CDT 02/03/2025 6:08 PM CDT Comment:Urine Culture Narrative Organism Antibiotic Method Susceptibility Escherichia coli Ampicillin <=8 mcg/mL: Susceptible Escherichia coli Ampicillin/Sulbactam <=8/4 mcg/mL: Susceptible Escherichia coli Cefazolin <=2 mcg/mL: Susceptible Escherichia coli Ciprofloxacin <=0.25 mcg/mL: Susceptible Escherichia coli Levofloxacin <=0.5 mcg/mL: Susceptible Escherichia coli Nitrofurantoin <=32 mcg/mL: Susceptible Escherichia coli Piperacillin/Tazobactam <=8 mcg/mL: Susceptible Escherichia coli Trimeth/Sulfa <=2/38 mcg/mL: Susceptible Lucho Rock MD LAB MICROBIOLOGY - GENERAL O RDERABLES Final Result Performing Organization Address City/[facility]/ZIP Co de Phone Number [facility] [address] [place] [phone] * (ABNORMAL) Urinalysis-Microscopic Exam (02/02/2025 4:00 PM CDT) Only the most recent of2 resultswithin the time period is included. Casts, urine NONE SEEN 0-2 Hyaline /lpf 02/03/2025 1:13 PM CDT [facility] Significant casts, urine NONE SEEN None Seen /lpf 02/03/2025 1:13 PM CDT [facility] RBC, Urine 0-3 0 - 3 /hpf 02/03/2025 1:13 PM CDT [facility] WBC, Urine 4-10(A) /hpf 02/03/2025 1:13 PM CDT [facility] Comment: Male: 0-3/hpf Female: 0-10/hpf Squamous Epithelial, Urine NONE SEEN Few /lpf 02/03/2025 1:13 PM CDT [facility] Trans Epithelial, Urine NONE SEEN 0 - 3 /hpf 02/03/2025 1:13 PM CDT [facility] Renal Tubular Cells, Urine NONE SEEN 0 - 1 /hpf 02/03/2025 1:13 PM T [facility] Bacteria, Urine 2+(A) None Seen - Few /hpf 02/03/2025 1:13 PM CDT [facility] Urine Crystals NONE SEEN None Seen 02/03/2025 1:13 PM [facility] 02/02/2025 4:00 PM CDT 02/03/2025 12:12 PM CDT us Lucho Rock MD LAB URINE ORDERABLES Final R esult [facility] [address] [place] [address] * (ABNORMAL) Urinalysis with reflex microscopic (02/02/2025 4:00 PM CDT) Only the most recent of2 resultswithin the time period is included. Type CLEAN CATCH 02/02/2025 4:19 PM CDT [facility] Color, Urine YELLOW YELLOW 02/02/2025 4:19 PM CDT [facility] Clarity, Urine CLEAR CLEAR 02/02/2025 4:19 PM CDT [facility] [place] Glucose, Urine 500(A) NEGATIVE mg/dL 02/02/2025 4:19 PM CDT [facility] Bilirubin, Urine NEGATIVE NEGATIVE 02/02/2025 4:19 PM CDT [facility] Ketones, Urine NEGATIVE NEGATIVE mg/dL 02/02/2025 4:19 PM CDT [facility] Specific [place], Urine <=1.005 1.000 ->=1.030 02/02/2025 4:19 PM CDT [facility] Blood, Urine NEGATIVE NEGATIVE 02/02/2025 4:19 PM CDT [facility] [place] pH, Urine 5.5 5.0 - 7.0 02/02/2025 4:19 PM CDT [facility] Protein, Urine NEGATIVE NEGATIVE-TRA CE mg/dL 02/02/2025 4:19 PM CDT [facility] Urobilinogen, Urine 0.2 0.2 - 1.0 E.U./dL 02/02/2025 4:19 PM CDT [facility] [place] Nitrite, Urine NEGATIVE NEGATIVE 02/02/2025 4:19 PM CDT [facility] Leukocytes, Urine TRACE(A) NEGATIVE 02/02/2025 4:19 PM CDT [facility] [place] Urine (Urine, Clean Catch) 02/02/2025 4:00 PM CDT 02/02/2025 4:05 PM CDT us Lucho Rock MD LAB URINE ORDERABLES Final R esult [facility] [address] [place] [address] * Add-On Test Request (02/02/2025 8:14 AM CDT) Add-on Testing SEE BELOW 02/02/2025 9:15 AM CDT [facility] Comment: Unable to add on URINE. 02/02/2025 8:14 AM CDT 02/02/2025 8:14 AM CDT Lucho Rock MD LAB BLOOD ORDERABLES Final R esult [facility] [address] [place] [address] * CT abdomen pelvis w IV contrast (01/23/2025 9:27 AM CDT) Anatomical Region Laterality Modality Body Computed Tomogra phy 01/23/2025 1:07 PM CDT Narrative 01/25/2025 7:37 AM CDT For Patients: As a result of the Century Cures Act, medical imaging exams and procedure reports are released immediately into your electronic medical record. You may view this report before your referring provider. If you have questions, please contact your health care provider. INDICATION: Pneumaturia TECHNIQUE: CT abdomen and pelvis with and without contrast. 89 mL Omnipaque 350 COMPARISON: None. FINDINGS: Lower chest: Unremarkable. Liver: Normal in size and attenuation. No suspicious masses. Gallbladder and bile ducts: No stones or inflammation. No biliary dilatation. Pancreas: There is 2.1 centimeter dystrophic calcification along the pancreatic head/uncinate process. Intraductal calcification not excluded. Mild atrophic appearance of the body and tail the pancreas with mild duct dilatation diffusely. Spleen: Normal in size. No masses. Adrenal glands: Normal in size. No nodules. Kidneys: Normal in size. No suspicious masses, stones, or hydronephrosis. GI tract: Unremarkable. Normal in caliber. No sign of mass or inflammation. Normal appendix. Vasculature: Abdominal aorta is normal in caliber. Lymph nodes: No lymphadenopathy. Peritoneum/Abdominal Wall: Small fat containing inguinal hernias. Pelvis: There is air in the urinary bladder. The sigmoid colon abuts the posterior bladder no fistulous connection can be clearly identified. No inflammatory changes are seen. Enlarged prostate gland. Bones: No suspicious bony lesions. IMPRESSION: 1. Air in the urinary bladder is present. The sigmoid colon abuts the posterior aspect of the urinary bladder a discrete fistulous connection can not be clearly identified. 2. 7 millimeter probable pulmonary nodule only partially seen on the most superior images on 11/22 in the right middle lobe follow-up per Fleischner society guidelines. 3. There is 2.1 centimeter dystrophic calcification along the pancreatic head/uncinate process. Intraductal calcification not excluded. Mild atrophic appearance of the body and tail of the pancreas with mild duct dilatation diffusely. GI consultation. FLEISCHNER SOCIETY GUIDELINES - SOLID NODULES: SINGLE LOW RISK - nodule less than 6 mm: No routine follow-up. - nodule 6-8 mm: CT at 6-12 months, then consider CT at 18-24 months. - nodule greater than 8 mm: Consider CT at 3 months, PET/CT or tissue sampling. SINGLE HIGH RISK - nodule less than 6 mm: Optional CT at 12 months. - nodule 6-8 mm: CT at 6-12 months, then CT at 18-24 months. - nodule greater than 8 mm: Consider CT at 3 months, PET/CT or tissue sampling. MULTIPLE LOW RISK - nodule less than 6 mm: No routine follow-up. - nodule 6-8 mm: CT at 3-6 months, then consider CT at 18-24 months. - nodule greater than 8 mm: CT at 3-6 months, then consider CT at 18-24 months. MULTIPLE HIGH RISK - nodule less than 6 mm: Optional CT at 12 months. - nodule 6-8 mm: CT at 3-6 months, then at 18-24 months. - nodule greater than 8 mm: CT at 3-6 months, then at 18-24 months. Please note that all CT scans at this facility use dose modulation, iterative reconstruction, and/or weight-based dosing when appropriate to reduce radiation dose to as low as reasonably achievable. Dictated by Susan Valdivia MD @ 01/25/2025 7:07:24 AM (Electronically Signed) Procedure Note Susan Valdivia MD - 01/25/2025 For Patients: As a result of the 21st Century Cures Act, medical imagingexams and procedure reports are released immediately into your electronicmedical record. You may view this report before your referring provider.If you have questions, please contact your health care provider. INDICATION: Pneumaturia TECHNIQUE: CT abdomen and pelvis with and without contrast. 89 mL Omnipaque 350 COMPARISON: None. FINDINGS: Lower chest: Unremarkable. Liver: Normal in size and attenuation. No suspicious masses. Gallbladder and bile ducts: No stones or inflammation. No biliarydilatation. Pancreas: There is 2.1 centimeter dystrophic calcification along thepancreatic head/uncinate process. Intraductal calcification not excluded.Mild atrophic appearance of the body and tail the pancreas with mild ductdilatation diffusely. Spleen: Normal in size. No masses. Adrenal glands: Normal in size. No nodules. Kidneys: Normal in size. No suspicious masses, stones, or hydronephrosis. GI tract: Unremarkable. Normal in caliber. No sign of mass orinflammation. Normal appendix. Vasculature: Abdominal aorta is normal in caliber. Lymph nodes: No lymphadenopathy. Peritoneum/Abdominal Wall: Small fat containing inguinal hernias. Pelvis: There is air in the urinary bladder. The sigmoid colon abuts theposterior bladder no fistulous connection can be clearly identified. Noinflammatory changes are seen. Enlarged prostate gland. Bones: No suspicious bony lesions. IMPRESSION: 1. Air in the urinary bladder is present. The sigmoid colon abuts theposterior aspect of the urinary bladder a discrete fistulous connectioncan not be clearly identified. 2. 7 millimeter probable pulmonary nodule only partially seen on the mostsuperior images on 11/22 in the right middle lobe follow-up per [facility] guidelines. 3. There is 2.1 centimeter dystrophic calcification along the pancreatichead/uncinate process. Intraductal calcification not excluded. Mildatrophic appearance of the body and tail of the pancreas with mild ductdilatation diffusely. GI consultation. FLEISCHNER SOCIETY GUIDELINES - SOLID NODULES: SINGLE LOW RISK - nodule less than 6 mm: No routine follow-up. - nodule 6-8 mm: CT at 6-12 months, then consider CT at 18-24 months. - nodule greater than 8 mm: Consider CT at 3 months, PET/CT or tissuesampling. SINGLE HIGH RISK - nodule less than 6 mm: Optional CT at 12 months. - nodule 6-8 mm: CT at 6-12 months, then CT at 18-24 months. - nodule greater than 8 mm: Consider CT at 3 months, PET/CT or tissuesampling. MULTIPLE LOW RISK - nodule less than 6 mm: No routine follow-up. - nodule 6-8 mm: CT at 3-6 months, then consider CT at 18-24 months. - nodule greater than 8 mm: CT at 3-6 months, then consider CT at 18-24months. MULTIPLE HIGH RISK - nodule less than 6 mm: Optional CT at 12 months. - nodule 6-8 mm: CT at 3-6 months, then at 18-24 months. - nodule greater than 8 mm: CT at 3-6 months, then at 18-24 months. Please note that all CT scans at this facility use dose modulation,iterative reconstruction, and/or weight-based dosing when appropriate toreduce radiation dose to as low as reasonably achievable. Dictated by Susan Valdivia MD @ 01/25/2025 7:07:24 AM (Electronically Signed) Chivo Olsen MD IMG CT PROCEDURES Final R esult * Estimated Glomerular Filtration Rate (eGFR) (01/16/2025 9:37 AM CDT) Pathologist [facility] Estimated Glomerular Filtration Rate (eGFR) >60 01/16/2025 10:43 AM [facility] Comment: GFR calculated from serum creatinine value Chronic Kidney Disease less than 60 mL/min/1.73 m2 Kidney Failure less than 15 mL/min/1.73 m2 Note: effective 10/18/2022: 2020 CKD-EPI Equation used 01/16/2025 9:37 AM CDT 01/16/2025 9:37 AM CDT Chivo Olsen MD LAB BLOOD ORDERABLES Delma l Result [facility] [address] [place] [address] * (ABNORMAL) Basic metabolic panel (01/16/2025 9:37 AM CDT) Pathologist [facility] Sodium 135 135 - 145 mEq/L 01/16/2025 10:43 AM [facility] Potassium 4.8 3.5 - 5.1 mEq/L 01/16/2025 10:43 AM [facility] Chloride 102 98 - 107 mEq/L 01/16/2025 10:43 AM [facility] CO2 30 22 - 31 mmol/L 01/16/2025 10:43 AM [facility] Creatinine 1.17 0.60 - 1.40 mg/dL 01/16/2025 10:43 AM [facility] BUN 28(H) 5 - 25 mg/dL 01/16/2025 10:43 AM [facility] Glucose 258(H) 70 - 100 mg/dL 01/16/2025 10:43 AM [facility] Calcium, Total,S 10.1 8.4 - 10.2 mg/dL 01/16/2025 10:43 AM CDT [facility] Anion Gap 3(L) 4 - 13 01/16/2025 10:43 AM T [facility] Comment: The anion gap is calculated with the following formula: AGAP = Na ? (Cl + CO2). Fasting? Unknown 01/16/2025 9:39 AM T [facility] Blood (Blood, Venous) 01/16/2025 9:37 AM CDT 01/16/2025 9:38 AM CDT us Chivo Olsen MD LAB BLOOD ORDERABLES Delma l Result Performing Organization Address City/[facility]/ZIP Co de Phone Number [facility] [address] [place] [phone] * Microalbumin/Creatinine Ratio (02/06/2024 4:05 PM CDT) Microalbumin, U <7.0 0.0 - 16.6 mg/L 02/07/2024 1:18 PM T [facility] Creatinine, Urine 42 mg/dL 02/07/2024 1:18 PM T [facility] Comment: No established reference range. Microalb/Creat Ratio see below 0 - 16 mg/g 02/07/2024 1:18 PM T [facility] Comment: Microalbumin value outside of detectable range. Unable to report Microalbumin/Creatinine ratio. Consider 24-hour collection if clinically indicated. Urine 02/06/2024 4:05 PM CDT 02/07/2024 12:24 PM CDT us Harris HILLMAN LAB URINE ORDERABLES Final Re sult [facility] [address] [place] [address] * (ABNORMAL) Lipid panel (02/06/2024 4:03 PM CDT) Cholesterol 179 0 - 199 mg/dL 02/07/2024 1:35 PM T [facility] Comment: Recommended by National Cholesterol Education Program (ATP III) -------- Cholesterol Ranges -------- <200 Desirable 200-239 Borderline high >=240 High Triglycerides 291(H) 0 - 149 mg/dL 02/07/2024 1:35 PM CDT [facility] Comment: -------- TRIG Ranges -------- <150 Normal 150-199 Borderline high 200-499 High >=500 Very high HDL 41 40 - 250 mg/dL 02/07/2024 1:35 PM CDT [facility] Comment: -------- HDL Ranges -------- <40 Low 40-59 Normal >=60 Optimal LDL Calculated 80 0 - 99 mg/dL 02/07/2024 1:35 PM CDT [facility] Comment: -------- LDL Ranges -------- <100 Optimal 100-129 Near optimal/above optimal 130-159 Borderline high 160-189 High >=190 Very high Fasting? No 02/06/2024 4:03 PM CDT [facility] Blood 02/06/2024 4:03 PM CDT 02/07/2024 12:24 PM CDT Harris HILLMAN LAB BLOOD ORDERABLES Final Re sult [facility] [address] [place] [address] from Last 3 Months or Most Recently Relevant to Health Maintenance Insurance [facility] Advance Directives For more information, please contact: [phone] * Full Code (Latest Code Status on File) Date Activated Date Inactivated Comments 07/25/2020 8:25 PM 08/01/2020 1:42 PM * Full Code Date Activated Date Inactivated Comments 06/11/2020 11:52 AM 06/11/2020 2:55 PM Care Teams Director Of Development And Marketing Relationship Specialty Start Date End Date Lucho Rock MD [address] [phone] PCP - General Family Medicine 11/18/20
--- OUTSIDE RECORDS SUMMARY | 2025-04-16 00:30 | XMS_ITS | Encounter Summary ---
Author Organization [facility] er Address [address] [place] [address] Care Team Providers Care Soft Drink Powder Mixer Name Role Phone Lucho Rock MD Primary Care Provider [phone] Reason for Visit * Reason Comments Med Refill Encounter Details Date Type Department Care Team (Late st Contact Info) Description 08/23/2021 Refill [facility] [address] [place] [address] [phone] Harris Rosado MBBS [address] [place] [address] [phone] Type 2 diabetes mellitus with hyperglycemia, without long-term current use of insulin (HCC) Social History Tobacco Use Types Packs/Day Years Used Date Smoking Tobacco: Never Smokeless Tobacco: Never Alcohol Use Standard Drinks/Week Comments Not Currently 0 (1 standard drink = 0.6 oz pure alcohol) Havent had a drink in 12 years PHQ-2 Answer Date Recorded PHQ-9 Total Score 2 08/23/2021 Sex and Gender Information Value Date Recorded Sex Assigned at Not on file Legal Sex Male 6:43 PM CDT Gender Identity Not on file Sexual Orientation Not on file documented as of this encounter Miscellaneous Notes * Telephone Encounter - Elizabeth Hernandez MA - 08/23/2021 3:37 PM CDT Last visit in provider department: 07/22/2021 Last visit requested medication was discussed: 07/22/2021 Upcoming appointment with provider: 09/30/2021 Last Rx: 07/07/2020- 180 with 3 refills Requested Prescriptions Pending Prescriptions Disp Refills ??? metFORMIN (GLUCOPHAGE) 1000 MG tablet [Pharmacy Med Name: METFORMIN HCL 1000MG TABS] 180 tablet3 Sig: TAKE ONE TABLET BY MOUTH TWICE A DAY WITH MEALS FOR DIABETES Labs: Component Latest Ref Rng & Units 07/01/2021 Sodium 135 - 145 mEq/L 140 Potassium 3.5 - 5.1 mEq/L 4.4 Chloride 98 - 107 mEq/L 102 CO2 22 - 31 mmol/L 28 Creatinine 0.6 - 1.4 mg/dL 1.2 BUN 5 - 25 mg/dL 26 (H) Glucose 70 - 100 mg/dL 124 (H) Calcium, Total,S 8.4 - 10.2 mg/dL 9.9 Fasting? Yes Cholesterol 0 - 199 mg/dL 140 Triglycerides 0 - 149 mg/dL 220 (H) HDL 40 - 250 mg/dL 30 (L) LDL Calculated 0 - 99 mg/dL 66 Microalbumin,mg/day 0.0 - 16.6 mg/L 10.1 Creatinine, Urine mg/dL 87 Microalb/Creat Ratio 0 - 16 mg/g 12 Hemoglobin A1C 4.0 - 5.6 % A1C 9.6 (H) Vitals: BP Readings from Last 2 Encounters: 07/22/21 138/84 07/22/21 138/84 documented in this encounter Plan of Treatment Upcoming Encounters Date Type Department Care Team (Late st Contact Info) Description 05/29/2025 8:00 AM CDT Office Visit [facility] [address] [place] [address] [phone] Treva Zamora, DISH TECHNICIAN, GENERAL MAGISTRATE [address] [place] [phone] documented as of this encounter Goals Goal Patient Goal Type Associated Problems Recent Progress Patient-Stated? Author Routine Health Management General On track( 022 1:17 PM PSYCHOLOGY LECTURER) Beti Grimm, RN Note: Routine Health Management Primary Care Provider Lucho Rock MD Future Scheduled Appointments Future Appointments Date Time Provider Department Center 01/20/2022 4:00 PM Kaila Bateman DPM [facility] Health Maintenance Health Maintenance Topic Date Due [...] Diabetes Management General No change(2021 1:17 PM PSYCHOLOGY LECTURER) No Beti Varela RN Note: Diabetes Management [...] Management General On track( 022 1:17 PM PSYCHOLOGY LECTURER) Beti Grimm, RN Note: Cardiovascular Management Essential hypertension Managed by (PCP; Cardiology; [facility]) Dr. Rock (PCP) Last: 09/29/21 [...] Rule Out 09/01/2021 09/01/2021 09/01/2021 8:13 PM PSYCHOLOGY LECTURER COVID-19 Rule Out 09/09/2021 09/09/2021 09/10/2021 1:46 AM PSYCHOLOGY LECTURER COVID-19 Rule Out 06/21/2022 06/21/2022 06/21/2022 4:19 PM CDT COVID-19 Rule Out 06/21/2022 06/21/2022 06/21/2022 4:31 PM CDT COVID-19 Rule Out 06/27/2022 06/27/2022 06/27/2022 3:35 PM CDT COVID-19 Rule Out 08/17/2022 08/17/2022 08/17/2022 11:18 AM CDT COVID-19 Confirmed 08/17/2022 08/17/2022 8:17 PM PSYCHOLOGY LECTURER COVID-19 Rule Out 07/03/2024 07/03/202407/0307/03/2024 1:46 PM CDT COVID-19 Confirmed 07/03/2024 07/03/2024 8:17 PM PSYCHOLOGY LECTURER documented as of this encounter Care Teams Soft Drink Powder Mixer Relationship Specialty Start Date End Date Lucho Rock MD [address] [place] [address] PCP - General Family Medicine 11/18/20 documented as of this encounter
--- OUTSIDE RECORDS SUMMARY | 2025-04-16 00:30 | XMS_ITS | Encounter Summary ---
Author Organization [facility] er Address [address] [place] [address] Care Team Providers Care Waste Disposal Attendant Name Role Phone Lucho Rock MD Primary Care Provider [phone] Encounter Details Date Type Department Care Team (Late st Contact Info) Description 03/05/2025 Results Follow-Up [facility] General Surgery [address] [place] [id number] [place] [address] [place] [phone] Social History Tobacco Use Types Packs/Day [...] from your doctor or pharmacy? Never 08/20/2024 [facility] Utilities Answer Date Recorded In the past 12 months has e [email or web address], gas, oil, or water Codementor threatened to shut off services in your [...] often do you attend chur ch or congregation services? Never 08/20/2024 Do you belong to any clubs o r organizations such as muslim groups, unions, fraternal or athletic groups, or [...] Date Recorded PHQ-9 Total Score 2 02/02/2025 [facility] - [...] place to sleep or slept in a jail (including now)? No 12/18/2022 Housing Stability Vital Sign Answer Donald e Recorded In the last 12 months, was t here a time when you were not able to pay the mortgage or rent on time? No 08/20/2024 In the past 12 months, how m any times have you moved where you were living? 0 08/20/2024 At any time in the past 12 m [facility], were you homeless or living in a jail (including now)? 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 Provider messages from Dr. Rock and Dr. Lord given to patient. Patient became very upset stating he will not do anything unless he can be assured there will be progress. Paper Pattern Folder offered appointment to speak with Dr. Rock and/or Dr. Lord over the phone. Patient stated I do not want to talk to any of them. Fuck them. After patient swore, patient ended call. * Result Encounter Note - Marlon Lord MD - 03/16/2025 11:23 AM CDT If patient still has questions, please schedule the patient for a visit with me either in person oras a telehealth visit * Telephone Encounter - Renae Saleh LPN - 03/13/2025 9:36 AM CDT Follow up on Sunday per message below. * Result Encounter Note - Marlon Lord MD - 03/12/2025 8:[address] Rock, not sure why Cologuard test could not be completed. I would recommend trying this once again and then based on this we can try to get him approved for an inpatient colonoscopy -this can bechallenging from an insurance standpoint to justify. * Result Encounter Note - Marlon Lord MD - 03/05/2025 2:29 PM CDT Please inform the patient that the Cologuard test could not be completed as the specimen was not collected appropriately. Recommend repeating the Cologuard test or plan to repeat colonoscopy as discussed initially documented in this encounter Plan of Treatment Upcoming Encounters Date Type Department Care Team (Late st Contact Info) Description 05/29/2025 8:00 AM CDT Office Visit [facility] [address] [place] [phone] Treva Zamora, AUTOMATIC LUMP MAKING MACHINE TENDER, LINE DANCER [address] [place] [phone] documented as of this encounter Goals Goal Patient Goal Type Associated Problems Recent Progress Patient-Stated? Author Routine Health Management General On track( 022 1:17 PM SOFTWARE RELEASE MANAGER) No Beti Varela, RN Note: Routine Health Management Primary Care Provider Lucho Rock MD Future Scheduled Appointments Future Appointments Date Time Provider Department Center 01/20/2022 4:00 PM Kaila Bateman DPM [facility] Health Maintenance Health Maintenance Topic Date Due [...] Diabetes Management General No change(2021 1:17 PM SOFTWARE RELEASE MANAGER) No Beti Varela, RN Note: Diabetes Management [...] Management General On track( 022 1:17 PM SOFTWARE RELEASE MANAGER) Beti Grimm RN Note: Cardiovascular Management Essential hypertension Managed by [facility] Dr. Rock (PCP) Last: 09/29/21 Due: [...] Diagnoses Not on filedocumented in this encounter Care Teams Waste Disposal Attendant Relationship Specialty Start Date End Date Lucho Rock MD [address] [phone] PCP - General Family Medicine 11/18/20 documented as of this encounter
--- OUTSIDE RECORDS SUMMARY | 2025-04-16 00:30 | XMS_ITS | Encounter Summary ---
Author Organization [facility] er Address [address] [place] [address] Care Team Providers Care Video Arcade Manager Name Role Phone Lucho Rock MD Primary Care Provider [phone] Reason for Visit * Reason Comments Med Refill Encounter Details Date Type Department Care Team (Late st Contact Info) Description 03/27/2025 Refill [facility] [address] [place] [id number] Harris Rosado MBBS [address] [place] [address] [id number] Type 2 diabetes mellitus with hyperglycemia, without long-term current use of insulin (HCC); Mixed hyperlipidemia Social History Tobacco Use Types [...] from your doctor or pharmacy? Never 08/20/2024 [facility] Utilities Answer Date Recorded In the past 12 months has e electric, gas, oil, or water company threatened to shut off services in your [...] 08/20/2024 How often do you attend chur or synagogue services? Never 08/20/2024 Do you belong to any clubs o r organizations such as anglican groups, unions, fraternal or athletic groups, or [...] Date Recorded PHQ-9 Total Score 2 02/02/2025 [facility] of Occupat ional Health - Occupational Stress [...] place to sleep or slept in a long-term (including now)? No 12/18/2022 Housing Stability Vital Sign Answer Donald e Recorded In the last 12 months, was t here a time when you were not able to pay the mortgage or rent on time? No 08/20/2024 In the past 12 months, how m any times have you moved where you were living? 0 08/20/2024 At any time in the past 12 m [facility], were you homeless or living in a long-term (including now)? 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 Author Routine Health Management General On track( 022 1:17 PM MAID HOUSEKEEPER) No Beti Varela, RN Note: Routine Health Management Primary Care Provider Lucho Rock MD Future Scheduled Appointments Future Appointments Date Time Provider Department Center 01/20/2022 4:00 PM Kaila Bateman DPM [facility] Health Maintenance Health Maintenance Topic Date [...] Diabetes Management General No change(2021 1:17 PM MAID HOUSEKEEPER) No Beti Varela, RN Note: Diabetes Management [...] Management General On track( 022 1:17 PM MAID HOUSEKEEPER) Beti Grimm RN Note: Cardiovascular Management Essential hypertension Managed by (PCP; Cardiology; [facility]) Dr. Rock (PCP) Last: 09/29/21 [...] without long-term current use of insulin (HCC) Mixed hyperlipidemia documented in this encounter Care Teams Video Arcade Manager Relationship Specialty Start Date End Date Lucho Rock MD [address] [phone] PCP - General Family Medicine 11/18/20 documented as of this encounter
== END 2025-04-15 08:52 | disposition home or self-care (01) ==
LOC: RAD 08:57
PROVIDERS: Visit Provider Internal Medicine Gastroenterology
DX: R13.10 Dysphagia, unspecified (principal)
CPT/HCPCS: 74230; 92611